=== PATIENT | male | born 1965 | race Caucasian/White ===

== ENCOUNTER 2016-11-18 14:23 | Inpatient (IN) | payer OTHER ==
[~2016-11-18] VITALS: Ht 180.3 cm; Wt 83.7 kg
--- NOTE | ~2016-11-18 | CATH ---
Cardiac Diagnostic + PCI Report Demographics Patient Name CHRISTAL Martinez Gender Male Date of 1965 Age 51 year(s) Patient Number [id number] Date of Study 11/19/2016 Visit Number [id number] Room Number G6330 [place] [id number] Ht 180.34 cm Wt 81 kg Referring Joelle Abbott MD Primary Physician Physician Performing [facility] Secondary Physician Physician Kathleen SNYDER Diagnostic [facility] Assisting Physician Physician Kathleen SNYDER Interventional [facility] Physician Batter Out Physician Kathleen SNYDER Findings and Conclusions Diagnostic Findings and Conclusion 1. Unstable angina - mid 80% CX hazy and eccentric lesion. 2. LVEDP 12 mmHg. Diagnostic Recommendations PCI of mid CX which appears to be the culprit lesion for Unstable angina presentation. Interventional Findings and Conclusion S/P PCI of mid CX with GINETTE, 3.0/`6 promus premier. Interventional Recommendations DAPT x 1 year. Continue regular medications. Patient will be observed overnight. Continue current medications. Hydration and followup creatinine. Patient has been instructed to not lift anything more than 5 pounds for 1 week. Aggressive risk factor management. Aggressive medical therapy for coronary artery disease. Recommend aggressive risk factor modification. Aggressive medical therapy for coronary artery disease. Cardiac diet . Optimization of medical therapy as an outpatient. Referral to Cardiac Rehabilitation now and at discharge . I would like to thank Dr. Lai for the opportunity to participate in the care of Mr. Collins . Procedure Description The patient was brought to the diagnostic cardiac catheterization-EP laboratory in the fasting, non-sedated state. Informed consent was obtained in the written and verbal form after the risks and benefits were explained. The patient had no further questions and agreed to proceed. The planned puncture-incision site(s) were shaved and prepped with ChloraPrep and draped in the usual sterile manner. Conscious sedation, supplemental oxygen, and pain control medications were delivered by a registered nurse under physician guidance. Surface ECG rhythm, blood pressure measurement, and pulse oximetry were monitored throughout the procedure. Arterial access. The access site was infiltrated with lidocaine. The vessel was entered with the Seldinger technique. A sheath was advanced into the vessel and used for catheter placement. Selective left coronary angiography. A catheter was advanced into the left coronary vessel ostium under Fluoroscopic guidance. Contrast was injected by hand. Images were obtained in multiple projections. Selective right coronary angiography. A catheter was advanced into the right coronary vessel ostium under fluoroscopic guidance. Contrast was injected by hand. Images were obtained in multiple projections. Left heart catheterization. A catheter was advanced across the aortic valve to the left ventricle under fluoroscopic guidance. Resting hemodynamics were obtained. Angioplasty and Stent Placement: A guiding catheter was used to intubate the vessel. A 0.14 wire was then used to cross the lesion. A balloon catheter was placed across the lesion and inflated. The balloon catheter was then removed. A Drug Eluting Stent was placed and inflated. Post placement angiograms were performed. Arterial artery hemostasis was achieved. The patient was transferred to a regular nursing floor via cart accompanied by a nurse. The patient left the laboratory in stable condition. Diagnostic Cath Status: Urgent Interventional Cath Status: Urgent Procedure Procedure Type Diagnostic procedure:Angiography:, Coronary Angios w/[facility] PCI procedure:Drug Eluting Coronary Stent:, CFX Indications: Abnormal enzymes and Unstable angina. The procedure was explained in detail to the patient. Risks, complications and alternative treatments were reviewed. Written consent was obtained. Medications Reviewed with Patient prior to Procedure. Angiographic Findings Dominance: Left Cardiac Arteries and Lesion Findings LMCA: Normal (0% Stenosis). LAD: Lesion on Mid LAD: 20% stenosis . LCx: Lesion on Mid CX: Proximal subsection.80% stenosis 16 mm length reduced to 0%. Pre procedure ANITHA II flow was noted. Post Procedure ANITHA III flow was present. The guidewire cross was successful.The lesion was diagnosed as a moderate risk lesion.Culprit lesion. Treatment results:Interventional treatment was successful. Devices used - Runthrough NS .014 x 180. Number of passes: 1. - Emerge Balloon 2.5 x 12. 1 inflation(s) to a max pressure of: 6 natalio. - Promus Premier 3.0 x 16 Stent. 2 inflation(s) to a max pressure of: 11 natalio. Lesion on 1st Ob Betty% stenosis . RCA: Lesion on Mid RCA: 10% stenosis . Coronary Tree Procedure Data Procedure Date Date: 11/19/2016Start: 02:31 PMEnd: 03:00 PM Entry Locations - Retrograde Percutaneous access was performed through the Right Radial artery (Primary location). A 6 Fr sheath was inserted. Hemostasis was successfully obtained using Mechanical Compression. Closure Comments: R band with 10 cc air deployed by Juan Ac RT.. Procedure Medications Order and Administration + + + + + !Time !Medication !Dosage !Route ! + + + + + !11/19/2016 02:27 !Fentanyl !50 mcg !I.V. ! !PM ! ! ! ! + + + + + !11/19/2016 02:27 !Versed !2 mg !I.V. ! !PM ! ! ! ! + + + + + !11/19/2016 02:34 !Radial Verapamil !2.5 mg !I.A. ! !PM ! ! ! ! + + + + + !11/19/2016 02:34 !Fentanyl !25 mcg !I.V. ! !PM ! ! ! ! + + + + + !11/19/2016 02:35 !Heparin (ACC_3) !5000 units !I.V. ! !PM ! ! ! ! + + + + + !11/19/2016 02:42 !Angiomax (Bivalirudin) !mg !I.V. bolus ! !PM !(ACC_5) ! ! ! + + + + + !11/19/2016 02:42 !Angiomax (Bivalirudin) !1.75 mg/kg/hr!I.V. bolus ! !PM !(ACC_5) ! ! ! + + + + + !11/19/2016 02:42 !Versed !1 mg !I.V. ! !PM ! ! ! ! + + + + + !11/19/2016 02:56 !Brilinta (Ticagrelor) !180 mg !P.O. ! !PM !(ACC_20) ! ! ! + + + + + Devices Used - A5 Fr. BS JR 4 Diag. Catheterwas used for:Right coronary angiography. - A5 Fr. BS JL 3.5 Diag. Catheterwas used for:Left coronary angiography. - A6 Fr. EBU 3.5 Guide Catheterwas used for:Circumflex Intervention. - A5 Fr. BS Angled Pigtail Diag. Catheterwas used for:LV Pressures. Contrast Material - Isovue 14940 ml Fluoroscopy Time: Diagnostic: 7:18 minutes. Total: 7:18 minutes. Fluoroscopy Dose: Diagnostic: 652 mGy. Total: 652 mGy. Estimated Blood Loss: 15 ml. Additional [facility] PCI Information PCI Indication:PCI for high risk Non-STEMI or unstable angina. Medical History Performed Procedures and Imaging Results - No [facility] stress or imaging studies were performed. Allergies - Penicillin. Risk Factors The patient risk factors include:family history of premature CAD, last creatinine: 1.4 mg/dl, creatinine clearance: 71.52 ml/min and former tobacco use. Admission Data Admission Date: 11/18/2016 Admission Time: 04:38 PM Admit Source: Emergency department Insurance Payors: Private health insurance. Admission Medications + +------+-------+ + + + + !Medication!Dosage!Times !Last !Last !Administered !Comments ! ! ! !Per Day!Delivery !Delivery ! ! ! ! ! ! !Date !Time ! ! ! + +------+-------+ + + + + !Aspirin ! ! ! ! !Yes ! ! !(any) ! ! ! ! ! ! ! + +------+-------+ + + + + !Statin ! ! ! ! !Yes ! ! !(any) ! ! ! ! ! ! ! + +------+-------+ + + + + Clinical Evaluation Leading to Procedure - The patient's CAD presentation was assessed as: Unstable angina. - The patient's anginal syndrome during the past two weeks was assessed as: Class IV according to the [place] Cardiovascular Society Classification System (CCS). Hemodynamics Condition: Rest O2 Consumption: Estimated: 242.04Heart Rate: 73 bpm Pressures (mmHg) +-----+ + !Site !Pressure ! +-----+ + !AO !136/73 (100) ! +-----+ + !AO !153/75 (109) ! +-----+ + !LV !148/5 ,15 ! +-----+ + !LV !142/5 ,15 ! +-----+ + !AO !144/75 (104) ! +-----+ + !LV !140/5 ,14 ! +-----+ + Valve Gradients and Areas + +---------+---------+---------+ +---------+ + !Valve !Peak !Mean !Area !Index !Flow !Source ! + +---------+---------+---------+ +---------+ + !Aortic !0 !0 ! ! ! ! ! + +---------+---------+---------+ +---------+ + !Aortic !0 !0 ! ! ! ! ! + +---------+---------+---------+ +---------+ + Shunts Oxygen Values O2 Capacity 213.52 O2 Consumption 242.04 Signatures dtt: KATHLEEN JACOB dtd: 11/19/16 1431 Physician Self Edit
--- NOTE | ~2016-11-18 | ER ---
PATIENT'S NAME: SHAWN SIEGEL [facility] AGE: 51 Y [address] ROOM: [place] [address] [facility] ADMIT DATE: 11/18/2016 ER/Outpatient Report DISCHARGE DATE: FAMILY PHYSICIAN: MAXIM HUDSON ATTENDING PHYSICIAN: JESSY DAVID ADDENDUM: Cumulative critical care time 30 minutes. MD KEZIA BILLY/modl /[id number] d: 11/18/162229 t: 11/21/16 181, OUTPATIENT REPORT
--- NOTE | ~2016-11-18 | HP ---
PATIENT'S NAME: SHAWN SIEGEL [facility] AGE: 51 Y [address] ROOM: [place] [address] LOCATION: [facility] ADMIT DATE: 11/18/2016 History & Physical DISCHARGE DATE: FAMILY PHYSICIAN: PHYSICIAN, NO ATTENDING PHYSICIAN: JESSY DAVID DATE OF SERVICE: CHIEF COMPLAINT: Chest pain. HISTORY OF PRESENT ILLNESS: A 51-year-old gentleman with a past medical history of longstanding smoking, presented to the emergency department today with a chest pressure which is located in the central of the chest, has been going on for couple of days now, worse about 2 hours ago without any radiation, relieved with nitroglycerin and aspirin in the emergency department, associated with diaphoresis, anxiety, dizziness, and not associated with any PND or orthopnea or shortness of breath. On further inquiry, he rated it 8/10 at maximum and now currently is 3/10. Denied any fever, cough, or chills, but did endorse having flu-like symptoms for the last 3 days, which were similar to the symptoms he is having today. He also endorsed having some headache right now. Also complained of some abdominal pain. No leg swelling reported. He also complained of having diarrhea for past three days now. REVIEW OF SYSTEMS: All other systems were reviewed and were negative except what is mentioned in the HPI. PAST MEDICAL HISTORY: No significant past medical history. MEDICATIONS: None. ALLERGIES: PENICILLIN. FAMILY HISTORY: Significant for myocardial infarction in mom at the age of 55. SOCIAL HISTORY: Quit smoking many years ago but previously he smoked for [id number]. No alcohol. Works at [employer]. PATIENT'S NAME: SHAWN SIEGEL [facility] AGE: 51 Y [address] ROOM: [place] [address] LOCATION: [facility]U ADMIT DATE: 11/18/2016 History & Physical DISCHARGE DATE: FAMILY PHYSICIAN: PHYSICIAN, NO ATTENDING PHYSICIAN: JESSY DAVID MEDICATIONS: None. PHYSICAL EXAMINATION: VITAL SIGNS: Blood pressure 145/67, pulse 63, oxygen saturation 98% on room air, respirations 20. GENERAL: No acute distress. Alert and oriented x3. HEENT: Head; atraumatic, normocephalic. Eyes, nonicteric. No pallor. Oropharynx, dry mucous membranes. CARDIOVASCULAR: S1, S2. No murmur, gallops, or rubs. LUNGS: Clear to auscultation bilaterally. ABDOMEN: Soft, nontender, nondistended. Bowel sounds present. EXTREMITIES: No clubbing, cyanosis, or edema. PSYCH: Normal affect, mood, and speech. NEUROLOGIC: Cranial nerves 2 through 12 intact. No motor or sensory deficits. MUSCULOSKELETAL: No muscle tenderness or joint swelling noted. LYMPHATICS: No lymphadenopathy or lymphangitis noted. ENDOCRINE: No thyromegaly or cushingoid features noted. LABORATORY STUDIES: Chest x-ray was done in the emergency department without any remarkable findings. Initial EKG was done, which was normal sinus rhythm without acute any ST-T wave changes. Initial set of troponin level was negative. Lab work including CBC was unremarkable. BMP was significant for elevated creatinine at 1.4. Mild elevation of liver enzymes also at AST 51 and ALT 55. CRP is markedly elevated at 13. TSH of 7.7. D-dimers were elevated at 3.55. CT of the chest PE protocol was done, which was negative. ASSESSMENT: 1. Unstable angina. 2. Tobaccoism. 3. Acute kidney injury secondary to dehydration. 4. Diarrhea. PLAN: So we are going to admit this patient. Aspirin has been given in the emergency department. We are going to administer high-dose statin as well. He is already on heparin and nitroglycerin drip, we will continue that. Echocardiography will be obtained. Cardiology consultation has been obtained, Dr. Lai. We will continue to give IV hydration and monitor creatinine for the possible cath today. We will investigate diarrhea with a C. diff assay at this point. Further management of this patient will depend on his progress in the hospital. PATIENT'S NAME: SHAWN SIEGEL [facility] AGE: 51 Y [address] ROOM: [place] [address] [facility] ADMIT DATE: 11/18/2016 History & Physical DISCHARGE DATE: FAMILY PHYSICIAN: PHYSICIAN, NO ATTENDING PHYSICIAN: JESSY DAVID MD BERTHA EATON/modl /[id number] D: [id number] T: [id number] HISTORY & PHYSICAL
--- NOTE | ~2016-11-18 | CON ---
PATIENT'S NAME: SHAWN SIEGEL [facility] AGE: 51 Y [address] ROOM: [place] [address] LOCATION: [facility]U ADMIT DATE: 11/18/2016 Consultation DISCHARGE DATE: FAMILY PHYSICIAN: PHYSICIAN, NO ATTENDING PHYSICIAN: JESSY DAVID REFERRING PHYSICIAN: Scar Tate MD REASON FOR CONSULT: Chest pain. HISTORY OF PRESENT ILLNESS: This is a 51-year-old gentleman, who was seen in the emergency room with various complaints starting with Thursday with pain in the pubic area, described as a sharp discomfort, then he started having nausea, vomiting, and chills. He thought he had the flu with some diarrhea. On Thursday, his symptoms continued now with new chest pressure that was substernal causing some shortness of breath. Prior to becoming ill, he denied any exertional chest discomfort or exertional shortness of breath. He denies feeling any palpitations, lightheadedness, or dizziness. Yesterday while he was feeling ill, he did feel a little off balance, but did not have any syncope. His cardiac enzymes in the emergency room were normal and his EKG showing a normal sinus rhythm without ST or T-wave changes. He received one sublingual nitroglycerin and was placed on a nitroglycerin infusion and his pain was gone. PAST MEDICAL HISTORY: Remote history of smoking quit in 2011. FAMILY HISTORY: Mother had a myocardial infarction at age 56. She is still alive at the age of 73. His mother side of family has had MIs in their 40s and 50s, some with sudden cardiac especially as cousins. ALLERGIES: PENICILLIN. MEDICATIONS: He does not take any home medications. SOCIAL HISTORY: He quit smoking in 2011. He smoked three packs of cigarettes a day for 33 years. REVIEW OF SYSTEMS: GENERAL: He has been feeling poorly for the past three days. He initially had chills. He denies any fevers. He has nausea, vomiting, and some PATIENT'S NAME: SHAWN SIEGEL [facility] AGE: 51 Y [address] ROOM: [place] [address] LOCATION: [facility] ADMIT DATE: 11/18/2016 Consultation DISCHARGE DATE: FAMILY PHYSICIAN: PHYSICIAN, NO ATTENDING PHYSICIAN: JESSY DAVID diarrhea. HEAD: No history of headache. EYES: No blurred vision or double vision. EARS: No problems with hearing. NOSE: No epistaxis or rhinorrhea. MOUTH: No gingival bleeding. THROAT: Denies sore throat, hoarseness, or difficulty swallowing. PULMONARY: Denies history of cough or hemoptysis. No wheezing. No history of pulmonary embolus. He had a CT of the chest that was negative for PE. GI: He is complaining of lower abdominal discomfort with complaints of diarrhea. There has been no report of melena or hematochezia. GENITOURINARY: Negative for urinary frequency. No difficulty with urination. No burning. MUSCULOSKELETAL: No complaints of arthralgias or myalgias. NEUROLOGIC: No TIA or CVA symptomatology. PHYSICAL EXAMINATION: VITAL SIGNS: He is 5 feet 11 inches, weight is 81 kg. Blood pressure 130s/40s, heart rate is in the 60 to 70 range. SKIN: Warm, dry, and pink. HEENT: Pupils equal, round, and react briskly. NECK: Soft and supple. No lymphadenopathy. No thyromegaly. JVD is flat. LUNGS: Sounds are clear without evidence of wheezes, rales, or rhonchi. CV: Regular with a normal S1, S2. He is currently chest pain free. ABDOMEN: Soft. Bowel sounds are present. There is tenderness noted in the pubic area. EXTREMITIES: No peripheral edema. No clubbing. No cyanosis. Distal pulses are 2+/4. LABORATORY DATA: EKG is showing a sinus rhythm. Chest x-ray was normal. CT was negative for PE. The cardiac enzymes are normal. Sodium was 137, potassium 3.7, magnesium was 2, and creatinine 1.4. WBC is 8.2, hemoglobin 15.7, and CRP is 13.3 with a TSH of 7.7. ASSESSMENT: 1. Chest pain that was relieved with nitroglycerin. He will continue the heparin and nitroglycerin as well as aspirin and statin. We will check an echocardiogram and rule out cardiac enzymes. 2. Hypothyroid. We will start him on replacement therapy. 3. Suprapubic pain. We will await his UA for further evaluation. This patient has been seen and assessed the assessment and plan, history of present illness, and physical exam are per Dr. Tate. PATIENT'S NAME: SHAWN SIEGEL [facility] AGE: 51 Y [address] ROOM: [place] [address] [facility] ADMIT DATE: 11/18/2016 Consultation DISCHARGE DATE: FAMILY PHYSICIAN: PHYSICIAN, MAXIM ATTENDING PHYSICIAN: JESSY DAVID REJI PERLA APRN FOR SCAR TATE MD TGP/modl /[id number] d: 11/19/16 2330 t: 12/02/16 1001, CONSULTATION REPORT
--- NOTE | ~2016-11-18 | DS ---
PATIENT'S NAME: SHAWN SIEGEL [facility] AGE: 51 Y [address] ROOM: [address] [address] LOCATION: [facility]PCU ADMIT DATE: 11/18/2016 Discharge Summary DISCHARGE DATE: 11/20/2016 FAMILY PHYSICIAN: PHYSICIAN, NO ATTENDING PHYSICIAN: Kayce Mullen FINAL DIAGNOSES: 1. Unstable angina. 2. Dyslipidemia. 3. Acute kidney injury. 4. Diarrhea, resolved. 5. Hypothyroidism. PROCEDURE: He had a left heart catheterization with MANUFACTURING ACCOUNTANT stent to the circumflex. HISTORY OF PRESENT ILLNESS: For details of admission please see the history and physical dictated by Dr. Mullen. In short, the patient is presented to the emergency room with a history of chest pain that described as pressure that improved with nitroglycerin. LABORATORY DATA: On admit, sodium 137, potassium 3.7, chloride 103, CO2 24, BUN 18, and creatinine 1.4. His alkaline phosphatase 116, AST 51, ALT 55. His initial troponin was less than 0.04. C-reactive protein was 13.3. TSH 7.7. At discharge, sodium was 141, potassium 3.6, chloride 111, creatinine 0.9. Alkaline phosphatase 124, AST 30, ALT 39, cholesterol 147, HDL 41, and LDL 77. CBC on admit, white blood cell count 8.2, hemoglobin 15.7, hematocrit 43.7, and platelet count 221. PTT 28, ProTime 11.4, and INR 1.08. Urinalysis on admission, no evidence of infection. RADIOLOGY DATA: A chest x-ray on admission was negative for acute changes. Portable abdominal x-ray did not show any free air. Spiral cut CT scan with PE protocol did show coronary artery calcifications and no evidence of a pulmonary emboli. Cardiovascular data: Heart catheterization report. HOSPITAL COURSE: The patient was admitted to the PCU and started on an IV heparin drip. Cardiology was consulted. His TSH was mildly elevated. He was started on thyroid replacement by the Cardiology Service. He is having diarrhea, so a C. diff assay was obtained. Dr. Lai did feel that he needed to proceed with a heart catheterization. Seen by Dr. Wang PATIENT'S NAME: SHAWN SIEGEL [facility] AGE: 51 Y [address] ROOM: [facility] [place], [place] [address] LOCATION: [facility]PCU ADMIT DATE: 11/18/2016 Discharge Summary DISCHARGE DATE: 11/20/2016 FAMILY PHYSICIAN: PHYSICIAN, NO ATTENDING PHYSICIAN: Kayce Mullen to do the heart catheterization. The patient was taken off the heparin. The patient did go to the track laborer. Please see her note for full details. The patient did have a PTCA and stent placement in the circumflex. His creatinine had improved to baseline in the morning of the procedure. Postprocedure, he did fine. He did not have any chest pain or chest pressure. He was initiated on Brilinta, aspirin, and statin. On the morning of discharge, his blood pressure was noted to be elevated. The decision was made to place him on a beta-mara. It was felt that the patient was stable for discharge to home. DISCHARGE INSTRUCTIONS: Have a low-sodium diet. Not to lift more than 10 pounds for 5 days. He needs to see to establish as a primary care provider. See Dr. Lai in 2 weeks. DISCHARGE MEDICATIONS: 1. Aspirin 81 mg daily. 2. Lipitor 80 mg daily. 3. Synthroid 25 mcg daily. 4. Brilinta 90 mg twice daily. 5. Coreg 3.125 mg twice daily. OVERALL PROGNOSIS: At discharge is good. ZACHARY SHAFFER MD LAW/modl /[id number] CC: Scar Lai MD d: 11/21/16 1156 t: 11/26/16 1934, DISCHARGE SUMMARY
--- NOTE | ~2016-11-18 | ECHO ---
Transthoracic Echocardiography Report (TTE) Demographics Patient Name SHAWN SIEGEL Date of Study 11/19/2016 Patient Number [id number] Visit Number [id number] Date of 1965 Room Number G6330 Accession Number [id number] Gender Male Age 51 year(s) Referring Handbag Operator Ama Rios RDCS, Physician RVT Physician Interpreting Joelle Abbott MD Children'S Service Worker Physician Supervising Ordering Physician Sebas Whitlock MD/ANANDA SNYDER Nurse Stress Catalogue Illustrator Conclusions Contractility Score Summary Normal Left Ventricular contractility was noted. Summary The estimated left ventricular ejection fraction is 60-65%. Mild concentric left ventricular hypertrophy. Diastolic assessment reveals normal relaxation. Normal left atrial size. Procedure Type of Study TTE procedure:2D Echocardiogram. Procedure Date Date: 11/19/2016 Start: 08:52 AM Study Location: Inpatient Portable Technical Quality: Adequate visualization Indications:Chest pain. Appropriate Use Criteria: 9 Patient Status: Routine Rhythm: Within normal limits HR: 62 bpm BP: 140/83 mmHg Allergies - Penicillin. M-Mode/2D Measurements LV Diastolic Dimension: 4.79 cm LV Systolic Dimension: 3.22 cm LV Septum Diastolic: 0.99 cm LV PW Diastolic: 1.14 cm AO Root Dimension: 2.6 cm Cardiac Output: 4.54 l/min AV Cusp Separation: 2.5 cm RV Diastolic Dimension: 2.96 cm LA volume: 62 ml IVC Inspiration: 0.77 cm LVOT: 2 cm RV Base: 4.05 cm LVOT VTI: 23.3 cm RV Mid: 3.61 cm LV Stroke volume: 73.16 ml TAPSE: 2.67 cm TDI-S': 15.2 cm/s Doppler Measurements AV Peak Velocity: 1.75 m/s MV Peak E-Wave: 1.14 m/s AV Peak Gradient: 12.25 mmHg MV Peak A-Wave: 1.1 m/s AV Mean Gradient: 4 mmHg MV E/A Ratio: 1.04 LVOT Peak Velocity: 0.93 m/s MV P1/2t: 59 msec TR Gradient:31.58 mmHg PV Peak Velocity: 0.88 m/s Estimated RAP:3 mmHg PV Peak Gradient: 3.07 mmHg Estimated RVSP: 35 mmHg Estimated PASP: 34.58 mmHg E' Septal Velocity: 0.14 m/s A' Septal Velocity: 0.08 m/s E' Lateral Velocity: 0.12 m/s A' Lateral Velocity: 0.1 m/s MV E/E' Ratio: 9.7 Findings Left Ventricle The estimated left ventricular ejection fraction is 60-65%. Diastolic assessment reveals normal relaxation. Right Ventricle Normal right ventricular size and function. Left Atrium Normal left atrial size. Right Atrium The right atrium is mildly dilated. Mitral Valve Mild mitral regurgitation by color Doppler. Aortic Valve The aortic valve is mildly sclerotic. Tricuspid Valve Trivial tricuspid regurgitation by color Doppler. Pulmonic Valve No pulmonic valve regurgitation by color Doppler. Pericardial Effusion No evidence of pericardial effusion. Miscellaneous Visualized portions of the aortic root and ascending aorta appear normal in size. Pleural Effusion No evidence of pleural effusion. Contractility Score LV regional wall motion:(0-Non visualized 1-Normal 2-Hypokinesis 3-Akinesis 4-Dyskinesis 5-Aneurysm) Signature dtt: Scar Lai (cardio) dtd: 11/19/16 0852 Physician Self Edit
--- NOTE | ~2016-11-18 | ER ---
PATIENT'S NAME: SHAWN SIEGEL [facility] AGE: 51 Y [address] ROOM: [address] [address] LOCATION: GPCU ADMIT DATE: 11/18/2016 ER/Outpatient Report DISCHARGE DATE: FAMILY PHYSICIAN: PHYSICIAN, NO ATTENDING PHYSICIAN: JESSY MULLEN Admission date and time documented in the medical record. I saw the patient at 1435 hours. CHIEF COMPLAINT: Left anterior chest tightness pressure. He feels like something is sitting on his chest. He has accompanying shortness of breath, diaphoresis, and lightheadedness. HISTORY OF PRESENT ILLNESS: This patient is a 51-year-old male, who since yesterday has had left anterior chest pain, nonradiating, has been persistent, has not gone away. Thought he may have the flu because he had nausea, vomiting, muscle aches, and diarrhea. He has vomited about six times. Accompanying shortness of breath and diaphoresis also. Again, no radiation of the pain to his jaw, neck, arm, shoulder, or back. No history of known coronary artery disease. Does have asthma. Does have a history of tobacco abuse, but he has not smoked for 5 years. No fever or chills. He has had some sweats. No headache, eyes, ears, nose, throat, neck, or spine pain. No fall or trauma. No recent colds, coughs, or flus. No syncope or near syncope. No abdominal pain. No urinary symptoms. No joint or muscle swelling, redness, or pain. No skin eruptions or rash. No history of neuro changes, psych issues, or endocrine problems. HOME MEDICATIONS: None. ALLERGIES: PENICILLIN. SOCIAL HISTORY: Nonsmoker for the past 5 years. Nondrinker. PAST MEDICAL HISTORY: Remote tobacco abuse, asthma, otherwise negative. PAST SURGICAL HISTORY: None. REVIEW OF SYSTEMS: All systems reviewed by me are negative with exception of those discussed in PATIENT'S NAME: SHAWN SIEGEL [facility] AGE: 51 Y [address] ROOM: [id number] [place] [id number] LOCATION: GPCU ADMIT DATE: 11/18/2016 ER/Outpatient Report DISCHARGE DATE: FAMILY PHYSICIAN: PHYSICIAN, NO ATTENDING PHYSICIAN: JESSY MULLEN the history of present illness. PHYSICAL EXAMINATION: VITAL SIGNS: Temperature 97.2 tympanic, pulse 88, respirations 20, blood pressure 154/89, and O2 saturation on room air is 99%. HEAD: Normocephalic. EYES, EARS, NOSE, THROAT: Clear. Mucous membranes moist. NECK: Negative. SPINE: Negative. LUNGS: Clear. Good air flow. No rales, rhonchi, or wheezes. HEART: Regular. Pulses are palpable. No chest wall or ribcage pain to palpation. ABDOMEN: Soft. Some tenderness suprapubically. No distention. No true guarding or rigidity. No rebound tenderness. Active bowel tones. No palpable masses. No organomegaly. No CVA tenderness. EXTREMITIES: No peripheral edema, cyanosis, or deformity. NEUROVASCULAR: Intact. SKIN: Clear. No skin eruptions or rash. DIAGNOSTIC DATA: EKG showed sinus rhythm. No acute ST elevation, ischemic change, or arrhythmia. Chest x-ray showed no acute infiltrate or changes. We will review x-ray with the radiologist. LABORATORY DATA: CMS was normal except for an elevated glucose 109, elevated creatinine 1.4, low GFR 58, elevated AST of 51, magnesium was 2, CPK was 128. [id number] cardiac enzymes were normal. CRP was 13.3. TSH was 7.7. ProBNP was 417. D- dimer was elevated 3.55. White count was 8200, 76 segs, 13 lymphs, 10 monos, hemoglobin is 15.7, hematocrit 43.7, platelet count was 221,000. PTT was 28, pro-time is 11.4 with an INR 1.08. I did give the patient one sublingual nitroglycerin and it took his pain almost completely away. He did drop his blood pressure so, we did give him IV normal saline, fluids. We did start him on heparin per cardiac protocol and IV nitroglycerin drip. In view of the fact that his D-dimer was positive, we did get a CT scan of the chest with PE protocol that showed no evidence of pulmonary embolism as read by Radiology. IMPRESSION: Left anterior chest pressure tightness, etiology uncertain, but most likely looks as a high probability that it is unstable angina. He did improve with nitroglycerin. His symptoms are consistent with a cardiac etiology. Does have a past history of tobacco abuse. PLAN: I did discuss the patient with Dr. Khalid, hospitalist. Dr. Mullen is coming PATIENT'S NAME: SHAWN SIEGEL [facility] AGE: 51 Y [address] ROOM: [id number] [place] [id number] LOCATION: [facility] ADMIT DATE: 11/18/2016 ER/Outpatient Report DISCHARGE DATE: FAMILY PHYSICIAN: , MAXIM ATTENDING PHYSICIAN: JESSY MULLEN to the emergency room to evaluate the patient and proceed on his recommendations. The patient most likely will be admitted to PCU Telemetry for further cardiac evaluation. Discussion ensued with the patient concerning my findings and recommendations, he understands. MD KEZIA BILLY/ollie /[id number] d: 11/18/16 2257 t: 11/21/16 1813, OUTPATIENT REPORT
[2016-11-18 14:51] LABS: BASOPHIL % 0.4 %; EOSINOPHIL % 0.4 %; HEMATOCRIT 43.7 % (37.0-53.0); HEMOGLOBIN 15.7 g/dL (12.0-17.0); IMMATURE GRANULOCYTE % 0.4 %; LYMPHOCYTE # 1.1 K/uL (0.8-4.0); LYMPHOCYTE % 13.2 %; MCH 30.1 pg (27.0-34.0); MCHC 35.9 gm/dL (32.0-36.5); MCV 83.9 fl (83.0-98.0); MONOCYTE # 0.8 K/uL (0.0-1.0); MONOCYTE % 9.8 %; NEUTROPHIL # (ANC) 6.2 K/uL (1.4-9.0); NEUTROPHIL % 75.8 %; NRBC % 0 /100WBC (0-0.00); PLATELET COUNT 221 K/uL (150-450); RBC 5.21 M/uL (4.00-6.00); RDW-CV 12.1 % (11.9-14.6); WBC 8.2 K/uL (4.0-11.0)
[2016-11-18 14:59] LABS: INR - (THERAPEUTIC) 1.08 (0.92-1.07); PROTIME 11.4 SECONDS (9.8-11.4); PTT 28 SECONDS (25-32)
[2016-11-18 15:10] LABS: ALBUMIN 3.8 gm/dL (3.5-5.0); ALK PHOS 116 IU/L (33-138); ALT 55 IU/L (12-78); ANION GAP 13.7 (10.0-19.0); AST 51 IU/L (10-40); BLOOD UREA NITROGEN 18 mg/dL (6-24); CALCIUM 9.3 mg/dL (8.5-10.5); CHLORIDE 103 mMol/L (96-110); CO2 24 mMol/L (22-32); CPK 128 IU/L (35-332); CREATININE 1.4 mg/dL (0.6-1.3); POTASSIUM 3.7 mMol/L (3.7-5.1); SODIUM 137 mMol/L (135-145); TOTAL BILIRUBIN 0.9 mg/dL (0.0-1.5); TOTAL PROTEIN 7.9 g/dL (6.0-8.4)
[2016-11-18 17:28] LABS: CPK 118 IU/L (35-332)
[2016-11-18 17:53] LABS: BILIRUBIN URINE NEGATIVE (NEGATIVE); BLOOD URINE NEGATIVE /UL (NEGATIVE); COLOR URINE YELLOW (YELLOW); GLUCOSE URINE NEGATIVE (NEGATIVE); KETONE URINE 15 mg/dL (NEGATIVE); LEUKOCYTES URINE 25 /UL (NEGATIVE); NITRITE URINE NEGATIVE (NEGATIVE); PH URINE 6.5 (4.0-8.0); PROTEIN URINE 15 mg/dL (NEGATIVE); SPEC GRAVITY URINE 1.005 (1.003-1.035); TURBIDITY URINE CLEAR (CLEAR); UROBILINOGEN URINE 1 mg/dL (NORMAL)
[2016-11-18 18:00] LABS: BACTERIA URINE MODERATE (NEGATIVE); EPITHELIAL URINE 0-2 #/HPF (NEGATIVE); RBC URINE NEGATIVE #/HPF (NEGATIVE)
--- NOTE | 2016-11-18 18:17 | NUR ---
ADMITTED TO ROOM FROM ER PER CART WITH COMPLAINTS OF CHEST PAIN. PT STATES PAIN STARTED A COUPLE OF DAYS AGO AND HE HAS HAD SOME SHORTNESS OF BREATH, CHEST HEAVINESS, HEADACHE, EMESIS X6, DIARRHEA AND HAS BEEN DIAPHORETIC. PT STATES HE TRIED TO WORK BUT COULDN'T STAND IT ANY LONGER AND CAME TO ER. DR TATE IN TO SEE PT. PT ORIENTED TO ROOM, SURROUNDINGS AND PLAN OF CARE.
--- NOTE | 2016-11-19 04:43 | NUR ---
Significant Event: A/O x3. Afebrile. Denied chest pain throughout shift. C/O headache, gave tylenol 650mg. VSS on RA. SBP 120-130s. Hep gtt @ 1300/hr, Nitro gtt off, LR @ 150/hr for 1 liter. NPO. On bedrest. Cooperative with cares. Follow up: Continue to monitor per plan of care.
[2016-11-19 08:46] LABS: ANION GAP 14.1 (10.0-19.0); BLOOD UREA NITROGEN 12 mg/dL (6-24); CALCIUM 8.1 mg/dL (8.5-10.5); CHLORIDE 109 mMol/L (96-110); CO2 22 mMol/L (22-32); CPK 128 IU/L (35-332); CREATININE 0.8 mg/dL (0.6-1.3); POTASSIUM 3.1 mMol/L (3.7-5.1); SODIUM 142 mMol/L (135-145)
--- NOTE | 2016-11-19 17:28 | NUR ---
Significant Event: A/O X3. No c/o chest pain throughout shift. VSS. Urinates in urinal, 650 uop. Heart cath this afternoon. Procedure site to right wrist, R band in place, currently with 6 ml air. Stent to circ x1. Back to floor at 1500. IV in Rt. antecubital and Lt. Hand infusing ns @ 100 ml/hr x 500 ml. Showered before heart cath. Follow up: possible discharge tomorrow.
--- NOTE | 2016-11-20 04:39 | NUR ---
Significant Event: DENIES ANY CP ALL NIGHT. TR BAND REMOVED WITHOUT ANY ISSUES. NO BRUISING OR BLEEDING NOTED. DOES REMAIN HYPERTENSIVE ALL NIGHT. VOIDING PER URINAL IN ADEQUATE TO LARGE AMOUNTS. REMAINS ON ROOM AIR ALL NIGHT. Follow up: HOME TODAY
[2016-11-20 04:59] LABS: ALBUMIN 3.1 gm/dL (3.5-5.0); ALK PHOS 124 IU/L (33-138); ALT 39 IU/L (12-78); ANION GAP 11.6 (10.0-19.0); AST 30 IU/L (10-40); BLOOD UREA NITROGEN 11 mg/dL (6-24); CALCIUM 8.7 mg/dL (8.5-10.5); CHLORIDE 108 mMol/L (96-110); CO2 25 mMol/L (22-32); CREATININE 0.9 mg/dL (0.6-1.3); POTASSIUM 3.6 mMol/L (3.7-5.1); SODIUM 141 mMol/L (135-145); TOTAL PROTEIN 6.7 g/dL (6.0-8.4)
[2016-11-20 05:02] LABS: TOTAL BILIRUBIN 0.5 mg/dL (0.0-1.5)
[2016-11-20] MEDS ORDERED: ASPIRIN LO-DOSE81 MG PO (11:58)
[2016-11-20] MEDS ORDERED: LIPITOR80 MG PO (12:00)
[2016-11-20] MEDS ORDERED: LEVOTHROID (SY25 MCG PO (12:01)
[2016-11-20] MEDS ORDERED: COREG 3.1253.125 MG PO (12:06)
[2016-11-20] MEDS ORDERED: BRILINTA90 MG PO (12:06)
--- NOTE | 2016-11-20 13:03 | NUR ---
Significant Event: A/O x3, cooperative with cares. VSS, SBPs 140-160s, HRs 60-70s, on room air. No c/o pain. Cath site to R) wrist, soft, non-tender; coban removed et band-aid in place. Up in room ad alberto; ambulate in dean. Dismissal instructions given to et patient; verbalized understanding. Dismissed to front lobby per w/c accompanied by nursing project coordinator. Follow up:
[2016-12-11] MEDS ORDERED: AMOXIL (BID DO875 MG PO (10:34)
[2016-12-11] MEDS ORDERED: DELTASONE1 MG PO (10:35)
[2016-12-11] MEDS ORDERED: ALIGN4 MG PO (12:49)
[2016-12-11] MEDS ORDERED: FLAGYL500 MG PO (12:49)
[2016-12-11] MEDS ORDERED: PEPCID20 MG PO (12:50)
[2016-12-11] MEDS ORDERED: ULTRAM50 MG PO (12:51)
[2016-12-22] MEDS ORDERED: LEVAQUIN500 MG (10:03)
== END 2016-11-20 13:00 | disposition disaster alternative care site (69) | DRG 247 ==
LOC: GMED 14:23 → GPCU 16:38
PROVIDERS: Emergency Medicine; Internal Medicine Interventional Cardiology; ADMIT Internal Medicine
DX: I25.110 Atherosclerotic heart disease of native coronary artery with unstable angina pectoris (principal); N17.9 Acute kidney failure, unspecified; E78.5 Hyperlipidemia, unspecified; E03.9 Hypothyroidism, unspecified; R19.7 Diarrhea, unspecified; E86.0 Dehydration; J45.909 Unspecified asthma, uncomplicated; Z87.891 Personal history of nicotine dependence; Z82.49 Family history of ischemic heart disease and other diseases of the circulatory system; R03.0 Elevated blood-pressure reading, without diagnosis of hypertension
CPT/HCPCS: C1725; C1769; C1874; C1887; C9113; C9600; G0237; J0583; J1644; J2250; J2405; J3010; J3480; J7030; J7050; J7060; J7120

== ENCOUNTER 2016-11-23 20:51 | Emergency (ER) | payer OTHER ==
--- NOTE | ~2016-11-23 | ER ---
PATIENT'S NAME: SHAWN SIEGEL [facility] AGE: 51 Y [address] ROOM: [place] [address] LOCATION: [facility] ADMIT DATE: 11/23/2016 ER/Outpatient Report DISCHARGE DATE: 11/23/2016 FAMILY PHYSICIAN: Ginny Caro MD ATTENDING PHYSICIAN: Alek [place] Time of Arrival: 2050 hours. Time of Evaluation: 2050. CHIEF COMPLAINT: Shortness of breath, back pain. HISTORY OF PRESENT ILLNESS: The patient is a 51-year-old male who presents to the emergency department today with chief complaint of shortness of breath and back pain. The patient was recently released from the hospital after receiving a heart stent. He denies any chest pain. Denies any fevers or chills. No nausea or vomiting. No diarrhea or constipation. Primarily complained of just back pain and shortness of breath. He reports he was feeling very good on Thursday. Pain is currently 4/10 in severity in his back. Denies any ripping or tearing sensation though. PAST MEDICAL HISTORY: Coronary artery disease and asthma. PAST SURGICAL HISTORY: Heart stents. SOCIAL HISTORY: The patient has a history of smoking, quit 3 years ago. Denies any alcohol or illicit drug use. ALLERGIES: NO KNOWN DRUG ALLERGIES. MEDICATIONS: Please see list. PRIMARY CARE DOCTOR: Ginny Caro MD. DIAGNOSTIC TECHNOLOGIST: Kathleen Mann MD. REVIEW OF SYSTEMS: PATIENT'S NAME: SHAWN SIEGEL [facility] AGE: 51 Y [address] ROOM: [place] [address] LOCATION: [facility] ADMIT DATE: 11/23/2016 ER/Outpatient Report DISCHARGE DATE: 11/23/2016 FAMILY PHYSICIAN: Ginny Caro MD ATTENDING PHYSICIAN: Alek [place] All systems are reviewed by myself and are negative with the exception of those discussed in HPI and past medical history. PHYSICAL EXAMINATION: VITAL SIGNS: Weight 81.7 kg, blood pressure 146/83, pulse 93, respiratory rate 20, temperature 99.3, oxygen saturation 97% on room air. GENERAL: The patient is a 51-year-old male, appears stated age. HEENT: Normocephalic, atraumatic. Pupils are equal, round, and reactive to light. NECK: Supple. There is no nuchal rigidity. CARDIOVASCULAR: Regular rate and rhythm. No murmurs, rubs, or gallops. LUNGS: Diminished diffusely with some mild expiratory wheezes noted though. ABDOMEN: Soft, nontender, and nondistended. No rebound, rigidity, or guarding. MUSCULOSKELETAL: The patient does have tenderness to palpation in upper thoracic region. Moves all 4 extremities, 5/5 muscle strength. SKIN: Warm and dry. No rashes or lesions. LABORATORY DATA AND X-RAYS: EKG is obtained, is interpreted by myself at 2059 hours shows sinus tachycardia with a rate of 105, normal axis, normal interval. No ST elevation, ST depression or T-wave inversions. CBC is normal except for white blood cell count 16.3. Chest x-ray shows no acute process as interpreted by myself. Coags are normal. D-dimer is 0.55. CMP is unremarkable except for sodium 133, alkaline phosphatase 152. LFTs are normal. Magnesium is normal. CK is normal. CK-MB is normal. Troponin 0.047 which is trending downward from previous. ProBNP is normal. Urinalysis is negative. Repeat 2-hour cardiac enzymes are 0.044 for troponin. CK-MB and CK are normal. Repeat EKG shows sinus rhythm with a rate of 79, normal axis, normal interval. No ST elevation, ST depression or T-wave inversions. IMPRESSION: 1. Back pain. 2. Shortness of breath and dyspnea. 3. Initial visit. EMERGENCY DEPARTMENT COURSE: The patient brought back to the examination room. Seen and evaluated by myself. IV is established. Laboratory analysis and imaging are obtained as described above. The patient is given 30 mg of Toradol IV, 2 mg of morphine IV as well as 125 mg of Solu-Medrol IV. The patient is also given a DuoNeb PATIENT'S NAME: SHAWN SIEGEL [facility] AGE: 51 Y [address] ROOM: [place], [place] [address] LOCATION: [facility] ADMIT DATE: 11/23/2016 ER/Outpatient Report DISCHARGE DATE: 11/23/2016 FAMILY PHYSICIAN: Ginny Caro MD ATTENDING PHYSICIAN: Alek [place] breathing treatment. This has resulted in improvement of the patient's symptoms. He dose not have any current symptoms at this time. I have discussed results with the patient. The patient is wishing to go home at this time. I have discussed I would recommend that he follows up with Dr. Caro on Thursday as scheduled. I have discussed return to care instructions including worsening symptoms or any other concerns to return to the emergency department as soon as possible. The patient is agreeable without further questions at this time. DISPOSITION: The patient discharged home in good condition. DO PEGGY WADSWORTH/modl /[id number] d: 11/24/16 0150 t: 11/24/16 1903, OUTPATIENT REPORT
[~2016-11-23 20:51] MED LIST: ASPIRIN LO-DOSE81 MG PO; BRILINTA90 MG PO; COREG 3.1253.125 MG PO; LEVOTHROID (SY25 MCG PO; LIPITOR80 MG PO
[2016-11-23 21:11] LABS: BASOPHIL % 0.2 %; EOSINOPHIL # 0.1 K/uL (0.0-0.5); EOSINOPHIL % 0.8 %; HEMATOCRIT 40.4 % (37.0-53.0); HEMOGLOBIN 14.5 g/dL (12.0-17.0); IMMATURE GRANULOCYTE # 0.1 K/uL (0.0-0.3); IMMATURE GRANULOCYTE % 0.7 %; LYMPHOCYTE # 2.1 K/uL (0.8-4.0); LYMPHOCYTE % 12.6 %; MCH 30.1 pg (27.0-34.0); MCHC 35.9 gm/dL (32.0-36.5); MCV 83.8 fl (83.0-98.0); MONOCYTE # 1.8 K/uL (0.0-1.0); MONOCYTE % 10.7 %; MPV 8.8 fl (9.4-12.4); NEUTROPHIL # (ANC) 12.2 K/uL (1.4-9.0); NRBC % 0 /100WBC (0-0.00); RBC 4.82 M/uL (4.00-6.00); RDW-CV 11.9 % (11.9-14.6)
[2016-11-23 21:12] LABS: PLATELET COUNT 367 K/uL (150-450); WBC 16.3 K/uL (4.0-11.0)
[2016-11-23 21:21] LABS: INR - (THERAPEUTIC) 1.06 (0.92-1.07); PROTIME 11.1 SECONDS (9.8-11.4); PTT 30 SECONDS (25-32)
[2016-11-23 21:32] LABS: ALBUMIN 3.3 gm/dL (3.5-5.0); ALK PHOS 152 IU/L (33-138); ALT 53 IU/L (12-78); ANION GAP 11.7 (10.0-19.0); AST 36 IU/L (10-40); BLOOD UREA NITROGEN 12 mg/dL (6-24); CALCIUM 8.8 mg/dL (8.5-10.5); CHLORIDE 101 mMol/L (96-110); CO2 24 mMol/L (22-32); CPK 49 IU/L (35-332); CREATININE 0.9 mg/dL (0.6-1.3); MAGNESIUM 1.8 mg/dL (1.8-2.6); POTASSIUM 3.7 mMol/L (3.7-5.1); SODIUM 133 mMol/L (135-145); TOTAL PROTEIN 7.7 g/dL (6.0-8.4)
[2016-11-23 21:33] LABS: TOTAL BILIRUBIN 0.9 mg/dL (0.0-1.5)
[2016-11-23 23:03] LABS: BILIRUBIN URINE NEGATIVE (NEGATIVE); BLOOD URINE NEGATIVE /UL (NEGATIVE); COLOR URINE YELLOW (YELLOW); GLUCOSE URINE NEGATIVE (NEGATIVE); KETONE URINE NEGATIVE (NEGATIVE); LEUKOCYTES URINE NEGATIVE /UL (NEGATIVE); NITRITE URINE NEGATIVE (NEGATIVE); PROTEIN URINE NEGATIVE (NEGATIVE); TURBIDITY URINE CLEAR (CLEAR); UROBILINOGEN URINE 1 mg/dL (NORMAL)
[2016-11-23 23:25] LABS: CPK 45 IU/L (35-332)
[2016-12-11] MEDS ORDERED: AMOXIL (BID DO875 MG PO (10:34)
[2016-12-11] MEDS ORDERED: DELTASONE1 MG PO (10:35)
[2016-12-11] MEDS ORDERED: FLAGYL500 MG PO (12:49)
[2016-12-11] MEDS ORDERED: ALIGN4 MG PO (12:49)
[2016-12-11] MEDS ORDERED: PEPCID20 MG PO (12:50)
[2016-12-11] MEDS ORDERED: ULTRAM50 MG PO (12:51)
[2016-12-22] MEDS ORDERED: LEVAQUIN500 MG (10:03)
== END 2016-11-23 23:50 | disposition disaster alternative care site (69) ==
LOC: GMED 20:51
PROVIDERS: Emergency Medicine
DX: M54.6 Pain in thoracic spine (principal); R06.02 Shortness of breath; J45.909 Unspecified asthma, uncomplicated; I25.10 Atherosclerotic heart disease of native coronary artery without angina pectoris; Z79.82 Long term (current) use of aspirin; Z79.899 Other long term (current) drug therapy; Z87.891 Personal history of nicotine dependence; Z98.890 Other specified postprocedural states
CPT/HCPCS: J1885; J2270; J2930

== ENCOUNTER 2016-11-26 14:34 | Emergency (ER) | payer OTHER ==
--- NOTE | ~2016-11-26 | ER ---
PATIENT'S NAME: SHAWN SIEGEL [facility] AGE: 51 Y [address] ROOM: [place] [address] LOCATION: [facility] ADMIT DATE: 11/26/2016 ER/Outpatient Report DISCHARGE DATE: 11/26/2016 FAMILY PHYSICIAN: Ginny Caro MD ATTENDING PHYSICIAN: Ramón Packer CHIEF COMPLAINT: Dizziness, weakness, and low blood pressure. HISTORY OF PRESENT ILLNESS: The patient arrives from clinic today for further evaluation of elevated white blood cell count, general malaise, multiple aches, abdominal pain, and low blood pressure. The patient has not seen a doctor for several years. He was seen in the middle of last week in the ER for unstable angina. Received a chest CT and ultimately had stenting to the LAD and was started on aspirin and Brilinta and discharged in good condition. On Thursday, he began to feel worse, was seen in the ER, and noted to have a mild leukocytosis. He was scheduled for followup and establishing care with Dr. Caro today. He states that he is continuing to feel even worse since then and Dr. Caro initiated some lab test. The test showed that he had worsening leukocytosis and was in fact borderline hypotensive with systolic blood pressure at 89 in clinic. The patient was brought to the ER for further extensive evaluation. The patient describes mostly back pain and some shortness of breath as his chief concerns. He has no other specific complaints. He denies any recent travel or exposure to unusual substances or any fecal matter that he is aware of. No one else at home is feeling ill. He denies any fevers, but has had chills. Some upset stomach but otherwise has been doing okay with no other focal concerning symptoms. He denies any changes in bowel or bladder habit. PAST MEDICAL HISTORY: Notable for recent stenting and presumed hypothyroidism as diagnosed in the hospital as well as hypertension and hyperlipidemia. PAST SURGICAL HISTORY: Includes heart catheterization and stenting to the LAD one week ago. MEDICATIONS: Are documented and reviewed on the record. Please see nurses' notes for same. ALLERGIES: PENICILLIN. REVIEW OF SYSTEMS: PATIENT'S NAME: SHAWN SIEGEL [facility] AGE: 51 Y [address] ROOM: [place] [address] LOCATION: [facility] ADMIT DATE: 11/26/2016 ER/Outpatient Report DISCHARGE DATE: 11/26/2016 FAMILY PHYSICIAN: Ginny Caro MD ATTENDING PHYSICIAN: Ramón Packer All systems reviewed and negative except as noted in the HPI. PHYSICAL EXAMINATION: VITAL SIGNS: Blood pressure 92/51, pulse 84, respiratory rate 24, temperature 98.2, and SpO2 is 99% on room air. GENERAL: Age-appropriate male, recumbent on the exam table with very ill appearance, poor color, slightly diaphoretic, in no acute distress, in mild pain. NEUROLOGIC: Awake and alert. GCS is 15. Moves all extremities appropriately to commands. No focal deficits. No asymmetry. HEENT: Normocephalic and atraumatic. Eyes are PERRL. Oropharynx is clear. NECK: Supple. Trachea is midline. CHEST: Heart is regular rate and rhythm with no murmurs. LUNGS: Grossly clear to auscultation bilateral. No rhonchi, wheezes, or rales. ABDOMEN: With mild guarding throughout. Slight tenderness in the left lower quadrant. No appreciable right-sided tenderness. No focal masses. No rebound. BACK: Diffusely tender. No true focal signs, most prominent in the mid thoracic spine and lumbar spine. No CVA tenderness but tapping over the paraspinal region does make it worse throughout the back. EXTREMITIES: Warm and well perfused except for the digits, which are slightly cool and borderline cyanotic with decreased cap refill. SKIN: Slightly diaphoretic. No obvious rashes. No significant breakdown identified. LABORATORY DATA AND X-RAYS: CT of the chest, abdomen, and pelvis as discussed with Radiology is indicative of a liver abscess measuring approximately 6 x 5 x 4 cm. There is also concern for left lower quadrant diverticulitis. No other obvious abnormalities of the spine or the chest. Free T4 is 1.9. INR is 1.2 and PTT is 31. ESR is 94. CRP is 28.4. TSH is 2.43. GGT is 199. Venous blood gas; pH 7.38, pCO2 is 46, bicarb 27.2, and lactate is 3.2. CMS: No electrolyte abnormalities. Creatinine 1.26. GFR 64.1. Total bilirubin is 1.5, AST is 64, and ALT is 84. White count is 18.2, hemoglobin 13.8, and platelets of 10.7. Differential is 9 bands, 80 segs, 4 monos, and 7 lymphocytes. CK-MB is below detectable threshold. Urinalysis with no appreciable abnormalities other than some epithelial cells and a few white blood cells. Amylase is 30 and lipase is 124 within appropriate range for this lab. Procalcitonin is 2.03. IMPRESSION: 1. Hepatic abscess. 2. Possible diverticulitis. PATIENT'S NAME: SHAWN SIEGEL [facility] AGE: 51 Y [address] ROOM: [place], [place] [address] LOCATION: [facility] ADMIT DATE: 11/26/2016 ER/Outpatient Report DISCHARGE DATE: 11/26/2016 FAMILY PHYSICIAN: Ginny Caro MD ATTENDING PHYSICIAN: Ramón Packer 3. Severe sepsis secondary to numbers one and two. 4. Elevated T4 with normal TSH with supplemental levothyroxine. 5. Mild azotemia compared to baseline discharge labs. 6. Lactic acidemia. 7. Mildly elevated INR. EMERGENCY DEPARTMENT COURSE: The patient was seen and evaluated as above. Labs from clinic were reviewed. Based on his history and presentation, multiple differential was considered including hepatobiliary pathology, paraspinal/epidural abscess, or other infectious pathology and/or bleeding. Workup as above. Diagnosis consistent with probable hepatic abscess. Discussion with Radiology indicates that the area in question was not present one week ago on prior CT PE protocol. He also may have some diverticulitis, which clinically correlates somewhat. Based on available guidelines and recommendations, I will initiate meropenem for this patient. A 30 mL/kilo bolus of normal saline was initiated. He did have marked improvement in his blood pressures. He was given morphine for pain and Zofran for nausea. He was feeling better. He did subsequently spike a fever to 101.2 and thus he was given some Tylenol. Blood cultures were drawn. I discussed the case with the available providers here including Radiology, General Surgery, and GI and Hospitalist Services. We are in agreement that this patient needs IR in someone who can possibly operate on the liver if required. In this case, I think that there are multiple risk factors and at the earliest, I can get him an Interventional Radiology evaluation tomorrow afternoon. I do not think that this patient with his current presentation should have any further delay in his evaluation by those who can provide definitive care and thus I attempted to transfer him to [facility] who had no available beds. Further search indicated that [facility] could facilitate his evaluation. I spoke on the telephone with a physician hospitalist, Dr. Colon who has accepted this patient for further evaluation. We will send him by ground. He has been stable in the emergency department and I believe it is appropriate for ground transport in this situation. Risks and benefits and purpose for transfer were discussed with the patient at length and depth. He will be transferred as noted. CRITICAL CARE TIME: 45 minutes of critical care time was spent on this patient, inpatient evaluation, review of labs, discussion with referring provider, discussion with multiple other providers including Radiology, Surgery, Hospitalist, and GI as well as transferring physician. This patient required multiple re- evaluations. He required fluids and antibiotics for severe sepsis and vital signs stabilization. I also ordered and interpreted multiple labs and CT scan of the chest, abdomen, and pelvis with contrast. He has been stabilized to the best of my ability and will be transferred to another facility in [facility] for definitive management. All questions were answered and the patient PATIENT'S NAME: SHAWN SIEGEL [facility] AGE: 51 Y [address] ROOM: [place] [address] LOCATION: ED ADMIT DATE: 11/26/2016 ER/Outpatient Report DISCHARGE DATE: 11/26/2016 FAMILY PHYSICIAN: Ginny Caro MD ATTENDING PHYSICIAN: Ramón Packer was transferred. MD GLADIS BAEZA/maryl /[id number] d: 11/27/16 0050 t: 11/29/16 0741, OUTPATIENT REPORT
[2016-11-26 15:07] LABS: BICARBONATE 27.2 mmol/L (18.0-23.0); LACTATE 3.2 mEq/L (0.50-1.60); PCO2 46 mmHg (35-45); PO2 24 mmHg (80-90)
[2016-11-26 15:18] LABS: INR - (THERAPEUTIC) 1.2 (0.92-1.07); PROTIME 12.6 SECONDS (9.8-11.4)
[2016-12-11] MEDS ORDERED: AMOXIL (BID DO875 MG PO (10:34)
[2016-12-11] MEDS ORDERED: DELTASONE1 MG PO (10:35)
[2016-12-11] MEDS ORDERED: FLAGYL500 MG PO (12:49)
[2016-12-11] MEDS ORDERED: ALIGN4 MG PO (12:49)
[2016-12-11] MEDS ORDERED: PEPCID20 MG PO (12:50)
[2016-12-11] MEDS ORDERED: ULTRAM50 MG PO (12:51)
[2016-12-22] MEDS ORDERED: LEVAQUIN500 MG (10:03)
== END 2016-11-26 18:28 | disposition disaster alternative care site (69) ==
LOC: GMED 14:34
PROVIDERS: Emergency Medicine
DX: A41.9 Sepsis, unspecified organism (principal); R65.20 Severe sepsis without septic shock; E87.2 Acidosis; K75.0 Abscess of liver; R79.89 Other specified abnormal findings of blood chemistry; J45.909 Unspecified asthma, uncomplicated; F17.210 Nicotine dependence, cigarettes, uncomplicated; Z88.0 Allergy status to penicillin; Z79.899 Other long term (current) drug therapy; Z79.82 Long term (current) use of aspirin; Z95.818 Presence of other cardiac implants and grafts
CPT/HCPCS: J2185; J2270; J2405; J7030; J7040; Q9967

== ENCOUNTER 2016-12-18 18:57 | Inpatient (IN) | payer OTHER ==
[~2016-12-18] VITALS: Ht 180.3 cm; Wt 76.5 kg
--- NOTE | ~2016-12-18 | CON ---
PATIENT'S NAME: SHAWN SIEGEL [facility] AGE: 51 Y [address] ROOM: [address] [place], [place] [address] LOCATION: [facility] [place] ADMIT DATE: 12/18/2016 Consultation DISCHARGE DATE: FAMILY PHYSICIAN: EMILY GRANADOS MD ATTENDING PHYSICIAN: LUCILA COSTA DATE OF CONSULTATION: 12/19/2016 REFERRING PHYSICIAN: Basilio Meléndez MD REASON FOR CONSULTATION: Diverticulitis with pericolonic abscess. HISTORY OF PRESENT ILLNESS: Shawn Siegel is a 51-year-old male who was initially admitted to [facility] on November 18, 2016, with unstable angina. He underwent a heart catheterization with PCI of the mid circumflex, which appears to be the culprit lesion for the unstable angina. A drug-eluting stent was placed and inflated. The patient was discharged on November 20. The patient states that approximately a week later, he had presented to the emergency room on 2 separate occasions and was discharged home. He had a followup appointment with Dr. Granados and a CT scan was performed on November 26. He was found to have a rounded complex cystic lesion within the right lower lobe of the liver measuring 5.3 cm worrisome for hepatic abscess. Sigmoid colon diverticular disease was present with hazy increased attenuation present adjacent to the midsigmoid colon with associated bowel wall thickening suspicious for midsigmoid colon diverticulitis. There was no evidence of abscess or free air at that time. The patient was transferred to [place], where he spent 12 days as an inpatient. He was treated for the liver abscess with a drain along with antibiotics for diverticulitis. He developed C. difficile and also had gout. The patient states that he has been home for approximately 10-14 days. He has been doing fine at home, eating well, and having good bowel movements that have been soft. He denies diarrhea. He was not having any abdominal pain. Yesterday morning, he developed shooting pain in his left side along with back pain. The patient called Dr. Granados's office and he recommended repeating the CT scan. The CT showed the pigtail drainage catheter in the right lobe of the liver with the distal portion centered in the low-attenuation collection with the volume decreased since prior imaging. It still measured 3.5 cm. There was no free air noted. Bowel was not distended. Again, seen were multiple colon diverticular predominantly in the descending and sigmoid portions of the colon. Again, there was wall thickening in the sigmoid colon likely reflecting changes of diverticulitis. There was some hazy increased attenuation in the pericolonic mesentery and the sigmoid colon. The current study showed a small fluid collection measuring 1 x 2 cm in size immediately lateral to the midportion of the sigmoid colon consistent with a small pericolonic abscess. Phlegmonous changes were seen in this area on prior CT PATIENT'S NAME: SHAWN SIEGEL [facility] AGE: 51 Y [address] ROOM: [address] [address] LOCATION: [facility] [place] ADMIT DATE: 12/18/2016 Consultation DISCHARGE DATE: FAMILY PHYSICIAN: EMILY GRANADOS MD ATTENDING PHYSICIAN: LUCILA COSTA exam. The patient was admitted under the care of the hospitalist and was started on IV Invanz and Flagyl. He was kept n.p.o. General Surgery was consulted for evaluation. The patient does continue on Brilinta due to his recent stent. The patient denies any prior issues with abdominal pain or diverticulitis. He has never had a colonoscopy done. FAMILY HISTORY: No family history of colon cancer. PAST MEDICAL HISTORY: Allergies: Penicillin, which caused itching. MEDICATIONS: At home include: 1. Aspirin 81 mg p.o. daily. 2. Lipitor 80 mg p.o. daily. 3. Levothroid 25 mcg p.o. daily. 4. Brilinta 90 mg p.o. b.i.d. 5. Coreg 3.125 mg p.o. b.i.d. 6. Amoxicillin 875 mg 1 tablet p.o. b.i.d. 7. Align 4 mg p.o. daily. 8. Pepcid 20 mg p.o. daily. 9. Tramadol 1-2 tablets p.o. q.6 hours p.r.n. pain. ILLNESSES: Include: 1. Coronary artery disease with recent unstable angina resulting in heart catheterization and drug-eluting stent placement. 2. Liver abscess, November 2016, status post drain placement. 3. Recent C. difficile infection. 4. Hypothyroidism. OPERATIONS: None. SOCIAL HISTORY: The patient is and lives in [place]. 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 He quit smoking 5 years ago. He does not consume alcohol and denies any illegal drug use. FAMILY HISTORY: Significant for coronary artery disease. No cancer. PATIENT'S NAME: SHAWN SIEGEL [facility] AGE: 51 Y [address] ROOM: [address] [place] [id number] LOCATION: [facility] [place] ADMIT DATE: 12/18/2016 Consultation DISCHARGE DATE: FAMILY PHYSICIAN: EMILY GRANADOS MD ATTENDING PHYSICIAN: LUCILA COSTA REVIEW OF SYSTEMS: The patient denies any recent coughs or colds. No shortness of breath or chest pain. Denies any prior issues with abdominal pain or change of bowel habits. He has not seen any blood in his stool. No pain, frequency, or urgency of urination. No difficulty voiding. PHYSICAL EXAMINATION: VITAL SIGNS: Temperature is 98.5, blood pressure 109/66, pulse 80, respirations 18. GENERAL: A 51-year-old male who is alert and cooperative. He is anxious. EYES, EARS, NOSE, AND THROAT: Grossly normal. LUNGS: Clear to auscultation bilaterally. No wheezes, rhonchi, or rales noted. HEART: Regular rate and rhythm. ABDOMEN: Inspection of the abdomen shows a drain in the right upper quadrant consistent with his drain for the liver abscess. Output appears serious at this time. He is flushing this with saline. I do not see any obvious scars on the abdomen. Bowel sounds are present. Abdomen is soft, although guarding is present. He is tender in the left lower quadrant. No diffuse peritonitis is noted. EXTREMITIES: The patient appears to move all extremities equally. LABORATORY WORK: CBC shows white blood cell count of 9.9, hemoglobin 11.3, hematocrit 34.1, platelets 286. Renal panel: Sodium is 138, potassium 4.0, chloride 106, CO2 24, BUN 9, creatinine 0.8. Urinalysis was within normal limits. Pro calcitonin is 0.09. Liver function tests were normal. ASSESSMENT: 1. A 51-year-old male with diverticulitis with small diverticular abscess. 2. Recent Clostridium difficile infection. 3. Liver abscess status post drain placement. 4. Recent heart catheterization with PCI with drug-eluting stent, currently on Brilinta. 5. History of gout. 6. Hypothyroidism. PLAN: I discussed with the patient the diagnosis of diverticulitis and the finding of a small abscess. I discussed recommendations to continue with IV antibiotics and bowel rest at this time to see if we can get this to clear up without surgical intervention. I discussed that if we have indication of diffuse peritonitis, then he may require emergent operation. I discussed signs and symptoms of this would include increasing abdominal pain, hypotension, tachycardia, etc. I discussed that if he got through this bout PATIENT'S NAME: SHAWN SIEGEL [facility] AGE: 51 Y [address] ROOM: [id number] [place] [id number] LOCATION: [facility] [place] ADMIT DATE: 12/18/2016 Consultation DISCHARGE DATE: FAMILY PHYSICIAN: EMILY GRANADOS MD ATTENDING PHYSICIAN: LUCILA COSTA without needing an operation then in 6-12 weeks, we would recommend doing a colonoscopy to further evaluate the colon and to rule out an underlying malignancy. Dr. Garay reviewed over the clinical history and CT scan results. He discussed with the patient. He agreed with the conservative treatment at this time with IV antibiotics. He is concerned that the patient did develop this abscess and recurrent symptoms while on antibiotics. He discussed with the patient that we do not know at what point the abscess developed and it may have actually been there while he was in [place], etc. He discussed the risks that the abscess may increase in size and that we may still need to put a drainage tube in it, although it is too small to do that now. We may need to repeat a CT scan in a week if the patient is not improving or if he gets significantly worse. The patient was concerned about having to stay in the hospital during this whole time. Dr. Garay discussed with him that if he improves to the point where he is ready to go home, that is fine, but he needs to understand that he may develop fever, increased pain, etc., and that a CT scan may need to be done after going home. The patient was in understanding and agreement with this. Dr. Garay has evaluated the patient and is involved in assessment and plan and is available for supervision. ESTELLA PENA PA-C FOR MD SAMANTHA WOODS/modl /[id number] d: 12/19/16 1016 t: 01/01/17 1331, CONSULTATION REPORT
--- NOTE | ~2016-12-18 | DS ---
PATIENT'S NAME: SHAWN SIEGEL [facility] AGE: 51 Y [address] ROOM: [address] [address] [place] [facility] [place] DATE: 12/18/2016 Discharge Summary DISCHARGE DATE: 12/21/2016 FAMILY PHYSICIAN: Ginny Caro MD ATTENDING PHYSICIAN: Mike Russell ATTENDING PHYSICIAN: I am dictating this for the attending physician on the day of discharge, Dr. Modesta Bhandari. ADMITTING PHYSICIAN: Mike Russell MD FAMILY PHYSICIAN: Ginny Caro MD CONSULTING PHYSICIAN: Dr. Tay Garay, General Surgery. DISCHARGE DIAGNOSES: 1. Sepsis. 2. Diverticulitis with pericolonic abscess leading to sepsis. 3. History of coronary artery disease status post stents. 4. Chronic obstructive pulmonary disease. DISCHARGE MEDICATIONS: 1. ASA 81 mg daily. 2. Lipitor 80 mg daily. 3. Carvedilol 3.125 mg p.o. twice daily. 4. Levothyroxine 25 mcg p.o. daily. 5. Brilinta 90 mg p.o. twice daily. 6. Ultram 50 mg 1 to 2 tablets p.o. every 6 hours p.r.n. pain. 7. Align 4 mg p.o. daily. 8. Pepcid 20 mg p.o. daily. 9. Levaquin 750 mg p.o. daily x7 days. #7 given with no refills. PROCEDURES PERFORMED: None. IMAGING STUDIES: Pertinent Radiologic Data: CT of the abdomen and pelvis with contrast on 12/18/2016 did show percutaneous liver abscess drainage catheter in place with decreased volume of liver abscess since the prior imaging. There was some sigmoid colon diverticulitis with worsening in CT appearance since the prior imaging with a small pericolonic abscess collection seen in the current study which was new. Scattered colon diverticula, scattered vascular calcifications. PERTINENT LABORATORY DATA: Procalcitonin on 12/18/2016 was 0.06. Lactate was 1.4. CBC on 12/18/2016 showed a white count of 11,000, hemoglobin 11.8, hematocrit 34.9, and platelets 357,000 with 72% neutrophils. CMP was really PATIENT'S NAME: SHAWN SIEGEL [facility] AGE: 51 Y [address] ROOM: [id number] [place], [place] [address] [place] [facility] [place] DATE: 12/18/2016 Discharge Summary DISCHARGE DATE: 12/21/2016 FAMILY PHYSICIAN: Ginny Caro MD ATTENDING PHYSICIAN: Mike Russell unremarkable. White count did fall to 9.9 on December 19 at 9.7 on December 21. Blood cultures remained negative that were drawn on 12/18/2016. UA on 12/18/2016 did show 25 leukocytes, negative nitrites, 0-2 wbc's, rare epithelials, and negative bacteria. HOSPITAL COURSE: Please refer to the admitting H and P dictated by Dr. Russell for more detailed outline in the patient's presentation. The patient was admitted to inpatient status. He was given morphine for pain and fentanyl. A surgical consultation was placed. The patient was seen on 12/19/2016 by Surgery. The patient was also initially started on IV Invanz and Flagyl. The patient continued to improve during his hospitalization. Pain was better. Tolerated clear liquid diet. We continued the IV antibiotics. His clinical condition continued to improve. There was no need at that point to repeat a CT scan. Ultimately, the patient continued to feel much better. Had no fevers. Was tolerating p.o., had a bowel movement, and it was felt stable to discharge home. Surgery felt this was appropriate on 12/21/2016. Internal Medicine concurred. The patient was discharged on oral Levaquin 750 mg p.o. daily x7 days and to follow up with Dr. Garay in 1 week. The patient voices understanding that if he should become febrile or have return of abdominal pain, nausea, vomiting, or diarrhea, he should seek medical attention. The patient did have a history of C. difficile, so I reviewed that he should continue with his Align at home. DISPOSITION: The patient was discharged on 12/21/2016 on oral Levaquin 750 mg p.o. daily x7 days. He should follow up with Dr. Garay in 1 week. He is due to see Dr. Caro in the upcoming week as well. He should follow up as previously scheduled. He is also to return to [place] for followup of his liver abscess on the which he is encouraged to do. Discharge of this patient took less than 30 minutes. CRYSTAL KENDALL PA-C FOR MD FOUZIA TORRES/maryl /[id number] CC: MD Tay Walsh MD d: 12/21/16 2137 t: 12/25/16 1547, DISCHARGE SUMMARY
--- NOTE | ~2016-12-18 | HP ---
PATIENT'S NAME: SHAWN SIEGEL [facility] AGE: 51 Y [address] ROOM: [address] [address] LOCATION: [facility] [place] ADMIT DATE: 12/18/2016 History & Physical DISCHARGE DATE: FAMILY PHYSICIAN: EMILY GRANADOS MD ATTENDING PHYSICIAN: LUCILA COSTA DATE OF SERVICE: CHIEF COMPLAINT: Left lower quadrant abdominal pain. HISTORY OF PRESENT ILLNESS: This is a 51-year-old male, who recently had unstable angina, status post stents placed in the heart in November 2016 in our hospital. He was discharged after was doing well. After he was discharged a few days after, he was hospitalized in [facility] due to liver abscess where he got a drainage tube placed and is draining well. He also was there for C. diff colitis and also for diverticulitis and gout. The patient was discharged with antibiotics for C. diff and diverticulitis. He states that he was taking metronidazole and also amoxicillin. He was doing fine. However, this morning, he woke up with the pain in the left lower quadrant about 9/10 in intensity, constant, and is a sharp type of pain. Last time he ate was about 4:30 p.m. last night. He states his stool has been normal, and he has had 3 bowel movements today, and he denies being loose. He denies any nausea or vomiting. His main complaint is the left lower quadrant pain. He denies any fever or chills. Because of the worsening pain in the left lower quadrant, the patient came here for evaluation. REVIEW OF SYSTEMS: As mentioned in the history of present illness. All other systems were reviewed and were negative except those mentioned in the history of present illness. PAST MEDICAL HISTORY: 1. Recent coronary artery disease, status post cardiac stents placed in November 2016. 2. Hyperlipidemia. 3. Hypothyroidism. 4. Asthma. 5. COPD. 6. Recent diagnosis of liver abscess, status post drainage tube placed in [place] in November 2016. 7. Recent history of C. diff colitis in November 2016 in [place]. 8. Recent history of diverticulitis, treating in [place] in November 2016. 9. Gout. PATIENT'S NAME: SHAWN SIEGEL [facility] AGE: 51 Y [address] ROOM: [address] [address] LOCATION: [facility] [place] ADMIT DATE: 12/18/2016 History & Physical DISCHARGE DATE: FAMILY PHYSICIAN: EMILY GRANADOS MD ATTENDING PHYSICIAN: LUCILA COSTA ALLERGIES: PENICILLIN CAUSES ITCHINESS. HOME MEDICATIONS: Currently is being reconciled. SOCIAL HISTORY: The patient was a former cigarette smoker about 2 packs per day for 30 years. He quit about 5 years ago. He denies any alcohol or any illegal drug use. PAST SURGICAL HISTORY: 1. Status post liver abscess draining tube placement in [place] in November 2016. 2. Status post cardiac stent placed in November 2016. FAMILY HISTORY: Father from heart problem at old age. Details are not clear. Mother also has heart problem but is alive. PHYSICAL EXAMINATION: VITAL SIGNS: At the time of my evaluation, temperature was 98.6, heart rate was 97, respiration was 20, blood pressure was 122/94, saturation was 95% on room air. GENERAL APPEARANCE: Alert and oriented x3. Currently, in no acute distress. HEENT: Pupils equally round and reactive to light. Extraocular muscles intact. Anicteric sclerae. Nasal turbinates are normal bilaterally. Dry oral mucosa. NECK: No JVD. CARDIOVASCULAR: Regular rate and rhythm. Normal S1, S2. No murmur. No rubs, no gallops. RESPIRATORY: He has some occasional expiratory wheezing diffusely. No rales, no rhonchi, no crackles. ABDOMEN: Soft, nondistended, pain to palpation in the left lower quadrant, no abdominal rigidity, no mass, bowel sounds present. No rebound tenderness. EXTREMITIES: No edema in upper or lower extremities. NEUROLOGIC: Grossly nonfocal. SKIN: No ulcer, no rash, no cyanosis. LABORATORY DATA: ABG on admission showed pH of 7.59, pCO2 of 23, pO2 of 153, bicarbonate 22.1, saturation 100%. Lactic acid 1.4. CPK 23. Troponin less than 0.04. ProBNP 57. White blood cells 11, hemoglobin 11.8, hematocrit 34.9, MCV 86.6, platelet 357. Glucose 135, BUN 12, creatinine 0.9, sodium 138, potassium 3.7, chloride 104, CO2 of 25, calcium 8.6. Total protein 6.8, albumin 2.8, AST 22, PATIENT'S NAME: SHAWN SIEGEL [facility] AGE: 51 Y [address] ROOM: [address] [place], [place] [address] LOCATION: [facility] [place] ADMIT DATE: 12/18/2016 History & Physical DISCHARGE DATE: FAMILY PHYSICIAN: EMILY GRANADOS MD ATTENDING PHYSICIAN: LUCILA [place] ALT 35, alkaline phosphatase 113, total bilirubin 0.5, anion gap 12.7, globulin 4.0. INR 1.14, PTT 28. GFR more than 90. CK-MB less than 0.5. Procalcitonin 0.07. IMAGING STUDIES: CT abdomen and pelvis with contrast on admission shows percutaneous liver abscess drainage catheter in place with decreased volume of liver abscess since prior imaging. Sigmoid colon diverticulitis with worsening CT appearance since prior imaging. A small pericolonic abscess collection is seen on the current study. A new finding compared to the prior imaging. ASSESSMENT AND PLAN: 1. Regarding his sepsis secondary to diverticulitis and pericolonic abscess: Consult General Surgery. Dr. Meléndez was already contacted by the ER, and the plan will be to be evaluated in the morning given the patient currently does not require any urgent surgical intervention since the patient is hemodynamically stable and the pain is tolerable. We will treat him with IV Invanz and IV Flagyl and IV fluids, n.p.o., pain medication with IV morphine p.r.n., IV Dilaudid p.r.n., and IV fentanyl p.r.n. Follow up with blood culture 2 sets. N.p.o. Further plan depends on clinical course. 2. Regarding his recent history of coronary artery disease, status post stents: We will continue aspirin and Brilinta given that they are very important to prevent stent thrombosis. Continue Coreg with holding parameters. Continue Lipitor. 3. Regarding his hypothyroidism: Continue home medication with levothyroxine home dose. 4. Regarding his asthma and chronic obstructive pulmonary disease: He has some wheezing on examination. I will give him some nebulization with DuoNeb p.r.n. and also albuterol p.r.n. I will not give steroids given that the patient currently is not in exacerbation, just has some mild expiratory wheezing. The patient denies any shortness of breath. There is no cough. There is no finding to suggest pneumonia. 5. Regarding his hyperlipidemia: Continue Lipitor. 6. Regarding his liver abscess: Continue the drainage in place. No active issue. The patient is to followup with his medical provider in [place] in the near future for removal of the tube. 7. Regarding his recent history of Clostridium difficile: He states his loose stool has already resolved. If he ever develops more loose stool, we will get a clostridium difficile test again. 8. Regarding his history of gout: No active issue. 9. He is a full code. 10. Deep venous thrombosis prophylaxis: We will use compression devices given that the patient may require surgery for the abscess drainage. Time spent in care on the day of admission 45 minutes where 10 minutes were PATIENT'S NAME: SHAWN SIEGEL [facility] AGE: 51 Y [address] ROOM: [place] [address] LOCATION: [facility] [place] ADMIT DATE: 12/18/2016 History & Physical DISCHARGE DATE: FAMILY PHYSICIAN: EMILY GRANADOS MD ATTENDING PHYSICIAN: LUCILA COSTA spent on chart review, and remainder of the time spent in interview and examination, also on counseling. The counseling includes going over the plan of care with the patient and the patient's family members and also answered all their questions and concerns to their satisfaction. Further plan will depend on clinical course. LUCILA COSTA MD CC/modl /[id number] D: [id number] T: [id number] HISTORY & PHYSICAL
--- NOTE | ~2016-12-18 | ER ---
PATIENT'S NAME: SHAWN SIEGEL [facility] AGE: 51 Y [address] ROOM: [place] [address] LOCATION: [facility] [place] ADMIT DATE: 12/18/2016 ER/Outpatient Report DISCHARGE DATE: FAMILY PHYSICIAN: EMILY GRANADOS MD ATTENDING PHYSICIAN: LUCILA COSTA Time of Arrival: 1899. Time of Evaluation: 1899. CHIEF COMPLAINT: Abdominal pain. HISTORY OF PRESENT ILLNESS: The patient is a 51-year-old male who presents to the emergency department today with a chief complaint of abdominal pain. The patient reports it is in the left lower quadrant. He reports this started 1 day prior to arrival. The patient does have a history of diverticulitis. The patient recently had a complicated medical history. He did end up getting a heart stent. He then developed a liver abscess requiring transfer to [place]. He does have an IR drain placed in his liver. He then apparently developed C. diff while in the hospital there. He did see Dr. Granados today in the clinic. He did have a CT imaging that did show a concern for a diverticular abscess in the left lower quadrant. He was sent to the emergency department with concern for potential deterioration. PAST MEDICAL HISTORY: Coronary artery disease, asthma, acute kidney injury, C. diff, sepsis, diverticulitis, liver abscess. PAST SURGICAL HISTORY: Heart stents. SOCIAL HISTORY: The patient denies any tobacco, alcohol, or illicit drug use. ALLERGIES: PENICILLIN. MEDICATIONS: Please see list. PRIMARY CARE DOCTOR: Dr. Granados. REVIEW OF SYSTEMS: PATIENT'S NAME: SHAWN SIEGEL [facility] AGE: 51 Y [address] ROOM: [address] [address] LOCATION: [facility] [place] ADMIT DATE: 12/18/2016 ER/Outpatient Report DISCHARGE DATE: FAMILY PHYSICIAN: EMILY GRANADOS MD ATTENDING PHYSICIAN: LUCILA COSTA All systems are reviewed by myself and are negative with the exception of those discussed in HPI and past medical history. PHYSICAL EXAMINATION: VITAL SIGNS: Weight is 76.4 kg. Blood pressure 128/77, pulse 107 respiratory rate 20, temperature 99.7, oxygen saturation 98% on room air. GENERAL: The patient is a 51-year-old male, who appears stated age, in no acute distress. HEENT. Head: Normocephalic, atraumatic. Pupils are equal, round, and reactive to light. NECK: Supple. There is no nuchal rigidity. CARDIOVASCULAR: Tachycardic. No murmurs, rubs, or gallops. LUNGS: Clear to auscultation bilaterally. No wheezes, rales, or rhonchi. ABDOMEN: Soft, nontender, and nondistended. No rebound, rigidity, or guarding. MUSCULOSKELETAL: The patient moves all 4 extremities. SKIN: Warm and dry. He does have a right upper quadrant percutaneous drain with a bandage in place. LABORATORY DATA AND X-RAYS: Venous blood gas 7.59/23/153/22/1.8. Lactate is 1.4. CBC is unremarkable. CMP is unremarkable. LFTs are normal. Cardiac enzymes are normal. ProBNP is normal. Coags are normal. Procalcitonin 0.07. CT scan of the abdomen and pelvis does show sigmoid colon diverticulosis with small pericolonic abscess collection. IMPRESSION: 1. Sigmoid colon diverticulitis with small pericolonic abscess collection. 2. Percutaneous drain for liver abscess. 3. Initial visit. EMERGENCY DEPARTMENT COURSE: The patient brought back to the examination room. Seen and evaluated by myself. IV was established. Laboratory analysis and imaging are obtained and reviewed by myself. The patient was given 4 mg Zofran IV. He was given multiple aliquots of Dilaudid IV for pain. He was given a liter of normal saline IV. He was started on Invanz IV as well as Flagyl IV. I have discussed the case with Dr. Costa with the Hospitalist Service who is condominium association manager. He does agree to accept the patient for further evaluation, treatment, and management. I did discuss the case with Dr. Meléndez, the surgeon on-call. He will see and evaluate the patient as well while in the hospital. DISPOSITION: The patient is admitted under the care of Hospitalist Service and Dr. Costa with surgical consultation in stable condition. PATIENT'S NAME: SHAWN SIEGEL [facility] AGE: 51 Y [address] ROOM: [place] [address] LOCATION: [facility] [place] ADMIT DATE: 12/18/2016 ER/Outpatient Report DISCHARGE DATE: FAMILY PHYSICIAN: EMILY GRANADOS MD ATTENDING PHYSICIAN: LUCILA COSTA DO PEGGY WADSWORTH/maryl /[id number] d: 12/19/16200 t: 12/26/16 1110, OUTPATIENT REPORT
[~2016-12-18 18:57] MED LIST changes: -LEVAQUIN 750 M750 MG PO; -LEVAQUIN500 MG
[2016-12-18 19:18] LABS: BICARBONATE 22.1 mmol/L (18.0-23.0); LACTATE 1.4 mEq/L (0.50-1.60); PCO2 23 mmHg (35-45); PO2 153 mmHg (80-90)
[2016-12-18 19:41] LABS: BASOPHIL % 0.2 %; EOSINOPHIL # 0.1 K/uL (0.0-0.5); EOSINOPHIL % 0.9 %; HEMATOCRIT 34.9 % (37.0-53.0); HEMOGLOBIN 11.8 g/dL (12.0-17.0); IMMATURE GRANULOCYTE # 0.1 K/uL (0.0-0.3); IMMATURE GRANULOCYTE % 0.5 %; LYMPHOCYTE # 1.9 K/uL (0.8-4.0); LYMPHOCYTE % 16.8 %; MCH 29.3 pg (27.0-34.0); MCHC 33.8 gm/dL (32.0-36.5); MCV 86.6 fl (83.0-98.0); MONOCYTE % 9.2 %; MPV 8.6 fl (9.4-12.4); NEUTROPHIL % 72.4 %; NRBC % 0 /100WBC (0-0.00); PLATELET COUNT 357 K/uL (150-450); RBC 4.03 M/uL (4.00-6.00); RDW-CV 13.8 % (11.9-14.6)
[2016-12-18 19:50] LABS: INR - (THERAPEUTIC) 1.14 (0.92-1.07); PTT 28 SECONDS (25-32)
[2016-12-18 20:04] LABS: ALBUMIN 2.8 gm/dL (3.5-5.0); ALK PHOS 113 IU/L (33-138); ALT 35 IU/L (12-78); ANION GAP 12.7 (10.0-19.0); AST 22 IU/L (10-40); BLOOD UREA NITROGEN 12 mg/dL (6-24); CALCIUM 8.6 mg/dL (8.5-10.5); CHLORIDE 104 mMol/L (96-110); CO2 25 mMol/L (22-32); CPK 23 IU/L (35-332); CREATININE 0.9 mg/dL (0.6-1.3); POTASSIUM 3.7 mMol/L (3.7-5.1); SODIUM 138 mMol/L (135-145); TOTAL PROTEIN 6.8 g/dL (6.0-8.4)
[2016-12-18 20:05] LABS: TOTAL BILIRUBIN 0.5 mg/dL (0.0-1.5)
--- NOTE | 2016-12-19 02:58 | NUR ---
Pt admitted to floor around 2300 for left lower abdominal pain. Pt stated pain started this morning. He went see his analytics consultant today, CT scan was obtained at clinic. Then his MD called and told him to go to the ER as he was concerned for a possible abscess. Pt has a history that includes heart stent in November, after the heart stents he developed diverticulitis which lead to an abscess on his liver. The patient was transferred to [place] where a drain was placed. While in [place] the patient developed c-diff. Pt was doing fine at home until yesterday. Pt states the drain is scheduled to be removed on 12/29/16. Allergy to PCN. Other health history incldues: asthma, hypothyroidism, gout.
--- NOTE | 2016-12-19 05:22 | NUR ---
Significant Event: Pt alert and oriented. Cooperative with cares. Up with stand by assist. Pt has denied any nausea/vomiting. Has complained of some left lower quad abdominal pain, morphine given x2 with relief noted. IV fluids infusing. Started on IV antibiotics. Has a drain to right lower abdominal area that was placed in [place] that didn't put any drainage out this shift. Pt is NPO. Can have ice chips. General surgery to consult today. VSS. Follow up:
[2016-12-19 05:58] LABS: BILIRUBIN URINE NEGATIVE (NEGATIVE); BLOOD URINE NEGATIVE /UL (NEGATIVE); COLOR URINE YELLOW (YELLOW); GLUCOSE URINE NEGATIVE (NEGATIVE); KETONE URINE NEGATIVE (NEGATIVE); LEUKOCYTES URINE 25 /UL (NEGATIVE); NITRITE URINE NEGATIVE (NEGATIVE); PROTEIN URINE NEGATIVE (NEGATIVE); SPEC GRAVITY URINE 1.015 (1.003-1.035); TURBIDITY URINE CLEAR (CLEAR); UROBILINOGEN URINE NORMAL (NORMAL)
[2016-12-19 06:06] LABS: HEMATOCRIT 34.1 % (37.0-53.0); HEMOGLOBIN 11.3 g/dL (12.0-17.0); MCH 29.1 pg (27.0-34.0); MCHC 33.1 gm/dL (32.0-36.5); MCV 87.9 fl (83.0-98.0); MPV 8.2 fl (9.4-12.4); RBC 3.88 M/uL (4.00-6.00); RDW-CV 14.2 % (11.9-14.6); WBC 9.9 K/uL (4.0-11.0)
[2016-12-19 06:09] LABS: BACTERIA URINE NEGATIVE (NEGATIVE); EPITHELIAL URINE RARE #/HPF (NEGATIVE); RBC URINE NEGATIVE #/HPF (NEGATIVE); WBC URINE 0-2 #/HPF (NEGATIVE)
[2016-12-19 06:20] LABS: BLOOD UREA NITROGEN 9 mg/dL (6-24); CALCIUM 8.2 mg/dL (8.5-10.5); CHLORIDE 106 mMol/L (96-110); CO2 24 mMol/L (22-32); CREATININE 0.8 mg/dL (0.6-1.3); SODIUM 138 mMol/L (135-145)
--- NOTE | 2016-12-19 11:30 | NUR ---
SPOKE TO PATIENT REGARDING CM AND OUR ROLE. PATIENT LIVES IN OWN HOME WITH SPOUSE AND IS PLANNING ON RETURNING THERE ONCE THEY ARE READY FOR DISCHARGE. PATIENT DOES NOT ATNICPATE ANY DISCHARGE NEEDS AT THIS ITME.
--- NOTE | 2016-12-19 18:01 | NUR ---
Significant Event: Patient alert and oriented. Patient c/o LLQ pain and rating from 5-8 and received Morphine 2 mg IV at 0716 with minimal relief and Dilaudid 1 mg IV given x 2 doses with the last at 1451. Dr Perez consulted and for now patient will not need surgery and will continue on the IV antibiotics. Started on clear liquids and is tolerating it fair. Denies nausea. Patient up to the bathroom with standby assist to void. Patient states passing a small amount of flatus but no BM. Abscess drain to his RLQ patent with 5 ml of creamy, purulent drainage. Follow up: Encourage ambulation
--- NOTE | 2016-12-20 05:13 | NUR ---
Significant Event: Afebrile, all other VSS. Dilaudid 1mg IV given x2 last at 0413 for pain. Bowel sounds hypoactive to active x4 quadrants. Up in room and to bathroom with minimal assistance. Drinking well, voiding adequate amounts. Drain to RLQ with 5ml serous drainage out. PIV patent and infusing without complications. IV antibiotics continue. Cooperative with cares. Follow up:
--- NOTE | 2016-12-20 16:15 | NUR ---
D: Patient vital signs stable patient afebrile. Patient diet advanced to regular diet today. Patient cooperative with cares. Complained of abdominal pain at 1530 with ultram given. Bowel sound hypoactive with abdomen soft. Patient drain intact with yellow drainage.
[2016-12-21 04:51] LABS: BASOPHIL # 0.1 K/uL (0.0-0.2); BASOPHIL % 0.5 %; EOSINOPHIL # 0.3 K/uL (0.0-0.5); EOSINOPHIL % 2.6 %; HEMATOCRIT 34.8 % (37.0-53.0); HEMOGLOBIN 11.4 g/dL (12.0-17.0); IMMATURE GRANULOCYTE % 0.4 %; LYMPHOCYTE # 1.9 K/uL (0.8-4.0); LYMPHOCYTE % 19.6 %; MCH 29.2 pg (27.0-34.0); MCHC 32.8 gm/dL (32.0-36.5); MONOCYTE # 1.1 K/uL (0.0-1.0); MONOCYTE % 10.8 %; MPV 8.6 fl (9.4-12.4); NEUTROPHIL # (ANC) 6.4 K/uL (1.4-9.0); NEUTROPHIL % 66.1 %; NRBC % 0 /100WBC (0-0.00); PLATELET COUNT 276 K/uL (150-450); RBC 3.91 M/uL (4.00-6.00); WBC 9.7 K/uL (4.0-11.0)
--- NOTE | 2016-12-21 04:56 | NUR ---
Significant Event: AAOX3. REG DIET. PIV TO RIGHT HAND IN PLACE AND PATENT WITH IVF INFUSING AT 75 ML/HR. PT COMPLAINED OF "HEARTBURN" SYMPTOMS, MD NOTIFIED: PEPCID D/C'D, N/O FOR PROTONIX IVP, TUMS TID WITH MEALS. PT RECEIVED PROTONIX AND TUMS DOSE LAST NIGHT FOR INITIAL DOSE. PT PLEASANT AND COOPERATIVE WITH CARES. DRAIN TO RIGHT ABD IN PLACE AND PATENT WITH MINIMAL OUT. Follow up:
[2016-12-21] MEDS ORDERED: LEVAQUIN 750 M750 MG PO (13:02)
--- NOTE | 2016-12-21 13:29 | NUR ---
D: Patient vital signs stable patient afebrile. Patient up in dean ambulating by self and tolerating excellent. Drain remains inplace with dressing intact to right lower abdominal quadrant. Patient states that he had a bowel movement today. Discharge orders received to discharge patient to home. I: Discharge instructions reviewed with patient including medication education and DVT signs and symptoms R: Patient states understanding of instructions and education; denies any questions p: continue with discharge as ordered Dissmissal goals met.
[2016-12-22] MEDS ORDERED: LEVAQUIN500 MG (10:03)
== END 2016-12-21 13:20 | disposition disaster alternative care site (69) | DRG 871 ==
LOC: GMED 18:57 → GMSU 21:59
PROVIDERS: Emergency Medicine; Surgery; ADMIT Internal Medicine
DX: A41.9 Sepsis, unspecified organism (principal); K75.0 Abscess of liver; K57.80 Diverticulitis of intestine, part unspecified, with perforation and abscess without bleeding; I25.10 Atherosclerotic heart disease of native coronary artery without angina pectoris; Z95.5 Presence of coronary angioplasty implant and graft; E03.9 Hypothyroidism, unspecified; E78.5 Hyperlipidemia, unspecified; J44.9 Chronic obstructive pulmonary disease, unspecified; Z88.0 Allergy status to penicillin; Z79.82 Long term (current) use of aspirin; Z98.2 Presence of cerebrospinal fluid drainage device
CPT/HCPCS: C9113; J1170; J1335; J2270; J2405; J7030

== ENCOUNTER → 2016-12-18 | Outpatient (CLI) | payer OTHER ==
[~2016-12-18] MED LIST changes: +ALIGN4 MG PO; +AMOXIL (BID DO875 MG PO; +DELTASONE1 MG PO; +FLAGYL500 MG PO; +LEVAQUIN 750 M750 MG PO; +LEVAQUIN500 MG; +PEPCID20 MG PO; +ULTRAM50 MG PO
== END | disposition disaster alternative care site (69) ==
LOC: GRAD 15:30
DX: R10.32 Left lower quadrant pain (principal); K75.0 Abscess of liver; K57.20 Diverticulitis of large intestine with perforation and abscess without bleeding; K57.30 Diverticulosis of large intestine without perforation or abscess without bleeding; I70.90 Unspecified atherosclerosis; Z96.89 Presence of other specified functional implants
CPT/HCPCS: Q9967

== ENCOUNTER → 2016-12-24 | Outpatient (CLI) | payer OTHER ==
[~2016-12-24] MED LIST changes: +LEVAQUIN 750 M750 MG PO; +LEVAQUIN500 MG
[2016-12-24 09:34] LABS: TOTAL PROTEIN 7.1 g/dL (6.0-8.4)
[2016-12-24 09:36] LABS: TOTAL BILIRUBIN 0.3 mg/dL (0.0-1.5)
== END ==
LOC: LCNC 09:01
PROVIDERS: Internal Medicine Interventional Cardiology
DX: E78.5 Hyperlipidemia, unspecified (principal); E03.9 Hypothyroidism, unspecified

== ENCOUNTER 2017-01-03 13:02 | Emergency (ER) | payer OTHER ==
--- NOTE | ~2017-01-03 | ER ---
PATIENT'S NAME: SHAWN SIEGEL [facility] AGE: 51 Y [address] ROOM: [place] [address] LOCATION: [facility] ADMIT DATE: 01/03/2017 ER/Outpatient Report DISCHARGE DATE: 01/03/2017 FAMILY PHYSICIAN: Ginny Caro MD ATTENDING PHYSICIAN: Alek Adams Time of Arrival: 1310 hours. Time of Exam: 1310 hours. CHIEF COMPLAINT: Vomiting. HISTORY OF PRESENT ILLNESS: The patient reports approximately 3 o'clock this morning he began vomiting, he vomited about 3 times in a row and then things calmed down, he was able to get some rest. This morning approximately 1100 hours, he ate some melon and toast and then within 15 minutes, he vomited back up, it was a bile, greenish, yellow-colored fluid. He has had chills off and on. Continues to be nauseous. Has not noticed any blood in the vomitus or his stools. He had a normal bowel movement yesterday. Denies any pain with urination. He has a general dull-type discomfort in the left upper abdominal area. Does have some discomfort in the right upper quadrant where he has a drain in place. He denies doing any heavy lifting, has not changed his activity or his diet in any way. ALLERGIES: PENICILLIN. CURRENT MEDICATIONS: On his chart and reviewed by me. PAST MEDICAL HISTORY: He had coronary artery disease and had a cardiac stent placed on 11/18/2016, couple of days later he came back to the hospital and was diagnosed with a liver abscess and diverticulitis. He was sent to [facility] where they put in a drain to the liver and he is scheduled to have that removed on 01/06/2017. He has had problems with diverticulitis, C. difficile, gout ever since end of November. PAST SURGERIES: Include heart stents and liver drain. SOCIAL HISTORY: He denies use of tobacco, drugs, or alcohol. States he has not drunk any alcohol in the last [address] Caro is his primary PATIENT'S NAME: SHAWN SIEGEL [facility] AGE: 51 Y [address] ROOM: [place] [address] LOCATION: [facility] ADMIT DATE: 01/03/2017 ER/Outpatient Report DISCHARGE DATE: 01/03/2017 FAMILY PHYSICIAN: Ginny Caro MD ATTENDING PHYSICIAN: Alek Adams provider. His does accompany him here today in the ER. REVIEW OF SYSTEMS: Negative other than those mentioned in the HPI. PHYSICAL EXAMINATION: VITAL SIGNS: He weighed 77.9 kg. Blood pressure is 126/76, pulse is 72, respirations 20, temperature of 96.3 tympanic, and O2 saturation was 97% on room air. GENERAL: He is awake, alert, and oriented x4. SKIN: [place], warm, and dry. RESPIRATIONS: Even and nonlabored. HEENT: Pupils are equal and reactive to light. NECK: Supple. No lymphadenopathy. LUNGS: Lung sounds are clear throughout. HEART: Regular rate and rhythm. ABDOMEN: Soft, nondistended. Bowel sounds are normoactive. He is tender with deep palpation in the left upper quadrant area. He does have a drain in the right upper quadrant area, that has serosanguineous minimal drainage in it. He states that drainage has not changed in the last couple of days. He is tender around the insertion site. NEUROLOGIC: He walked in with a steady even gait, moved all extremities strongly and equally. EMERGENCY ROOM COURSE: Saline lock was initiated. Zofran 4 mg IV was given. Lab work was drawn. CBC is within normal limits. Chem panel is within normal limits. Total bilirubin is 0.5, AST is 33 with an ALT of 39, amylase is 33 with a lipase of 87. Lactate was 1.2. Procalcitonin was normal. CT scan of the abdomen and pelvis was completed. Radiologist reports that the liver abscess is stable. He does have diverticulitis, but it has improved, it is not gone but is improving. The patient was reviewed with Dr. Adams. IMPRESSION: 1. Vomiting. 2. Left upper quadrant abdominal pain. PLAN: Home, rest. Discussed clear liquid diet and gradually increasing. Continue his current medications and treatment. A prescription was written for Zofran. If symptoms do not improve in the next 2 to 3 days, he is to follow up with his primary provider. He is to keep that appointment as scheduled for January 06 in [place]. He and his verbalized understanding. PATIENT'S NAME: SHAWN SIEGEL [facility] AGE: 51 Y [address] ROOM: [place] [address] LOCATION: [facility] ADMIT DATE: 01/03/2017 ER/Outpatient Report DISCHARGE DATE: 01/03/2017 FAMILY PHYSICIAN: Ginny Caro MD ATTENDING PHYSICIAN: Alek Adams LAMONT WATKINS DO DJ/maryl /[id number] d: 01/03/[id number] t: 01/10/172044, OUTPATIENT REPORT
[2017-01-03 13:33] LABS: BASOPHIL % 0.5 %; EOSINOPHIL # 0.3 K/uL (0.0-0.5); IMMATURE GRANULOCYTE % 0.5 %; LYMPHOCYTE # 1.6 K/uL (0.8-4.0); LYMPHOCYTE % 20.7 %; MCH 29.1 pg (27.0-34.0); MCHC 33.3 gm/dL (32.0-36.5); MCV 87.4 fl (83.0-98.0); MONOCYTE # 0.6 K/uL (0.0-1.0); MPV 8.5 fl (9.4-12.4); NEUTROPHIL # (ANC) 5.2 K/uL (1.4-9.0); NEUTROPHIL % 66.3 %; NRBC % 0 /100WBC (0-0.00); RBC 4.46 M/uL (4.00-6.00); WBC 7.9 K/uL (4.0-11.0)
[2017-01-03 13:37] LABS: PLATELET COUNT 341 K/uL (150-450)
[2017-01-03 13:58] LABS: ALBUMIN 3.2 gm/dL (3.5-5.0); ALK PHOS 120 IU/L (33-138); ALT 39 IU/L (12-78); ANION GAP 11.9 (10.0-19.0); AST 33 IU/L (10-40); BLOOD UREA NITROGEN 10 mg/dL (6-24); CALCIUM 8.9 mg/dL (8.5-10.5); CHLORIDE 104 mMol/L (96-110); CO2 26 mMol/L (22-32); CREATININE 0.9 mg/dL (0.6-1.3); POTASSIUM 3.9 mMol/L (3.7-5.1); SODIUM 138 mMol/L (135-145); TOTAL PROTEIN 7.1 g/dL (6.0-8.4)
[2017-01-03 14:11] LABS: TOTAL BILIRUBIN 0.5 mg/dL (0.0-1.5)
== END 2017-01-03 15:02 | disposition disaster alternative care site (69) ==
LOC: GMED 13:02
PROVIDERS: Emergency Medicine
DX: R11.2 Nausea with vomiting, unspecified (principal); R10.12 Left upper quadrant pain; I25.10 Atherosclerotic heart disease of native coronary artery without angina pectoris; Z88.0 Allergy status to penicillin; Z98.890 Other specified postprocedural states; Z79.899 Other long term (current) drug therapy
CPT/HCPCS: J2405; Q9967